=== PATIENT | female | born 1985 | race Caucasian/White ===

== ENCOUNTER → 2017-09-05 08:35 | Outpatient (CLI) | payer OTHER, SELFPAY ==
[2017-09-05 11:04] LABS: Absolute Lymphocyte Count 2.14 X10^3/ul (0.83-4.51); Basophil# 0.03 X10^3/uL; Basophil% 0.4 % (0-1); Eosinophil# 0.21 X10^3/uL; Eosinophils% 2.6 % (0-5); Hematocrit 40.6 % (37-47); Hemoglobin 13.9 g/dl (12.0-15.0); Lymphocyte # 2.14 X10^3/ul (4.0); Lymphocyte % 26.9 % (19-41); Mean Corp Hgb Conc 34.2 g/gl (32-36); Mean Corpuscular Volume 90.4 fL (81-99); Mean Platelet Vol. 10.7 fl (6.2-12.0); Monocyte% 7.5 % (0-10); Neutrophil # 4.95 X10^3/uL (2.7-7.7); Neutrophil % 62.3 % (47-70); Platelet Count 295 K/mm3 (150-450); RBC Distribution Width CV 12.4 % (11.6-14.6); RBC Distribution Width SD 40.5 fl (35.1-43.9); Red Blood Count 4.49 M/mm3 (4.2-5.4)
[2017-09-05 11:08] LABS: POSITIVE COUNT NO; POSITIVE DIFFERENTIAL NO; POSITIVE MORPHOLOGY NO
[2017-09-17 10:38] LABS: Pathologist Review Reviewed
== END ==
PROVIDERS: Family Provider Family Medicine; PCP Family Medicine; Visit Provider Family Medicine
DX: R53.83 Other fatigue (principal)
CPT/HCPCS: 36415; 85025

== ENCOUNTER → 2018-02-06 15:53 | Outpatient (CLI) | payer OTHER, SELFPAY ==
[2018-02-14 11:05] LABS: HPV Reflexed? NOT INDICATED
== END ==
PROVIDERS: Visit Provider Obstetrics & Gynecology
DX: Z12.4 Encounter for screening for malignant neoplasm of cervix (principal)
CPT/HCPCS: 88175; G0145

== ENCOUNTER → 2019-02-12 16:02 | Outpatient (CLI) | payer OTHER, SELFPAY | PROVIDERS: Visit Provider Obstetrics & Gynecology | DX: Z12.4 Encounter for screening for malignant neoplasm of cervix (principal) ==

== ENCOUNTER → 2019-11-05 10:09 | Outpatient (CLI) | payer OTHER, SELFPAY ==
[2016-06-10 06:41] VITALS: BMI 23.0
[2019-11-05 11:19] LABS: Absolute Lymphocyte Count 2.36 X10^3/uL (0.83-4.51); Absolute Neutrophil Count 5.6 X10^3/uL (2.0-7.7); Basophil# 0.05 X10^3/uL; Basophil% 0.6 % (0-1); Eosinophil# 0.23 X10^3/uL; Eosinophils% 2.5 % (0-5); Hematocrit 45.6 % (37-47); Hemoglobin 15.3 g/dL (12.0-15.0); Lymphocyte # 2.36 X10^3/ul (4.0); Mean Corp Hgb Conc 33.6 g/dL (32-36); Mean Corpuscular Volume 92.5 fL (81-99); Mean Platelet Vol. 10.6 fl (6.2-12.0); Monocyte# 0.79 X10^3/uL; Monocyte% 8.7 % (0-10); NRBC Flagged by Analyzer 0 % (0-5); Neutrophil # 5.61 X10^3/uL (2.7-7.7); Neutrophil % 61.9 % (47-70); Platelet Count 287 K/mm3 (150-450); RBC Distribution Width CV 12.2 % (11.6-14.6); RBC Distribution Width SD 41.6 fl (35.1-43.9); Red Blood Count 4.93 M/mm3 (4.2-5.4); White Blood Count 9.1 K/mm3 (4.4-11.0)
[2019-11-05 11:23] LABS: Color, Urine Yellow (Yellow); Glucose, Dipstick Normal (Normal); Ketone-Dipstick Negative (Negative); Leukocyte Esterase-Dipstick Negative /ul (Negative); Nitrite-Dipstick Negative (Negative); Occult Blood-Urine Negative /ul (Negative); Protein-Dipstick Negative (Negative); Specific Gravity, Urine 1.015 (1.002-1.030); Urine Bilirubin Dipstick Negative (Negative); Urine Clarity Clear (Clear); Urine Urobilinogen Normal (Normal)
[2019-11-05 11:31] LABS: Amphetamine Urine VISTA NEGATIVE (<1000 ng/mL); Barbiturate Urine VISTA NEGATIVE (< 200 ng/mL); Benzodiazepine Urine VISTA NEGATIVE (< 200 ng/mL); Cocaine Urine VISTA NEGATIVE (< 300 ng/mL); Ecstacy Urine VISTA NEGATIVE (< 500 ng/mL); Methadone Urine VISTA NEGATIVE (< 300 ng/mL); PCP Urine VISTA NEGATIVE (< 25 ng/mL); THC Urine VISTA NEGATIVE (< 50 ng/mL); Vista UDS pH Range 7
[2019-11-05 11:36] LABS: Thyroid Stim Hormone (TSH) 1.16 uIU/mL (0.358-3.74)
[2019-11-05 12:16] LABS: HIV - WCH Non-Reactive (Nonreactive); Hepatitis B Surface Antigen Non-Reactive (Nonreactive); Hepatitis C Antibody Non-Reactive (Nonreactive); Rubella IgG 70.7 IU/mL
[2019-11-05 13:47] LABS: Chlamydia Trachomatis by PCR Negative (Negative); Neisserai gonorrhoeae by PCR Negative (Negative); Probe Check PASS; Sample Adequacy Control PASS; Specimen Processing Control PASS
[2019-11-11 02:04] LABS: Prenatal RPR NONREACTIVE (NONREACTIVE)
== END ==
PROVIDERS: Visit Provider Obstetrics & Gynecology
DX: Z34.81 Encounter for supervision of other normal pregnancy, first trimester (principal); Z11.3 Encounter for screening for infections with a predominantly sexual mode of transmission; Z87.51 Personal history of pre-term labor
CPT/HCPCS: 36415; 80307; 81002; 84144; 84443; 85025; 86703; 86762; 86803; 87340; 87491; 87591

== ENCOUNTER → 2020-03-13 15:05 | Outpatient (CLI) | payer OTHER, MEDICAID, SELFPAY ==
[2016-06-10 06:41] VITALS: BMI 23.0
== END ==
PROVIDERS: Visit Provider Student in an Organized Health Care Education/Training Program
DX: Z82.69 Family history of other diseases of the musculoskeletal system and connective tissue (principal)
CPT/HCPCS: 36415

== ENCOUNTER → 2020-04-10 13:55 | Outpatient (CLI) | payer MEDICAID, SELFPAY ==
[2016-06-10 06:41] VITALS: BMI 23.0
[2020-04-10 14:40] LABS: Hematocrit 34.7 % (37-47); Hemoglobin 11.8 g/dL (12.0-15.0); Mean Corpuscular Hgb 31.8 pg (27.0-32.0); Mean Corpuscular Volume 93.5 fL (81-99); Mean Platelet Vol. 10.8 fl (6.2-12.0); Platelet Count 214 K/mm3 (150-450); RBC Distribution Width CV 12.1 % (11.6-14.6); RBC Distribution Width SD 41.7 fl (35.1-43.9); Red Blood Count 3.71 M/mm3 (4.2-5.4); White Blood Count 10.9 K/mm3 (4.4-11.0)
[2020-04-10 15:07] LABS: Glucose Challenge Gest 1H 50g 103 mg/dL (70-140)
== END ==
PROVIDERS: Visit Provider Student in an Organized Health Care Education/Training Program
DX: Z34.82 Encounter for supervision of other normal pregnancy, second trimester (principal)
CPT/HCPCS: 36415; 82950; 85027

== ENCOUNTER 2020-06-05 05:50 | Inpatient (IN) | payer MEDICAID, SELFPAY ==
[2016-06-10 06:41] VITALS: BMI 23.0
[2020-06-05] VITALS (36 sets, daily range): BP systolic 106–140; BP diastolic 51–81; PULSE 66–108; RESP 16–18; TEMP 36.3–37.3; O2SAT 95–100; BMI 30.1
[2020-06-05] MEDS: Lactated Ringers 500 ML 999 ML IV ×3 (06:10→12:31)
[2020-06-05] MEDS: Betamethasone/Betamethasone 30 MG/5 ML Vial 12 MG IM (06:21)
[2020-06-05 06:24] LABS: Absolute Lymphocyte Count 2.63 X10^3/uL (0.83-4.51); Basophil# 0.05 X10^3/uL; Basophil% 0.4 % (0-1); Eosinophil# 0.13 X10^3/uL; Eosinophils% 0.9 % (0-5); Hemoglobin 12.4 g/dL (12.0-15.0); Lymphocyte # 2.63 X10^3/ul (4.0); Lymphocyte % 18.9 % (19-41); Mean Corp Hgb Conc 33.5 g/dL (32-36); Mean Corpuscular Hgb 30.2 pg (27.0-32.0); Mean Platelet Vol. 11.3 fl (6.2-12.0); Monocyte# 1.07 X10^3/uL; Monocyte% 7.7 % (0-10); NRBC Flagged by Analyzer 0 % (0-5); Neutrophil % 71.7 % (47-70); Platelet Count 211 K/mm3 (150-450); RBC Distribution Width CV 12.5 % (11.6-14.6); RBC Distribution Width SD 40.1 fl (35.1-43.9); Red Blood Count 4.11 M/mm3 (4.2-5.4); White Blood Count 13.9 K/mm3 (4.4-11.0)
[2020-06-05] MEDS: Lactated Ringers 1,000 ML 200 ML IV ×2 (06:50→09:42)
[2020-06-05 06:51] LABS: Group B Strep DNA By PCR Negative (Negative); Internal Control PASS; Probe Check PASS; Specimen Processing Control PASS
--- NOTE | 2020-06-05 07:40 | PCM.HP.BLA ---
History and Physical Date of Admission: 06/05/20 ACOG ANTEPARTUM RECORD - HISTORY AND PHYSICAL (06/05/2020) Name: JASON NOLASCO History of this : This is a 35 year old [id number] presents at 35 wks + 4 days gestation in active labor. OB Physician: Jess Monsalve DO 's Physician: DOMINICK ...................................................................... : 1985 Age: 35 Address: [address] [place] [address] Phone: (H) [phone] (O) [phone] Insurance Carrier: [employer] [phone] Emergency Contact: LANG CONSTANCE [phone] ...................................................................... Final GUILLAUME: 07/06/20 07/06/20 By Ultrasound: PARITY:[id number] (G-Total Pregnancies P-Fullterm,Premature,Induced AB,Spont AB, Ectopics, Multiple,Living) GUILLAUME CONFIRMATION: By LMP: 09/30/19 09/30/19 Initial Exam: By First Ultrasound Exam: Final GUILLAUME: 07/06/20 07/06/20 OB PROBLEM LIST: AMA EPDS on 12/03/2019 = 3. h/o genital warts. perirectal warts Hx of anxiety New FOB for this , he has two daughters, ages 4 and 6. Plans to have an epidural, plans to breastfeed Son delivered at 23 w 4 d at [facility] [place]. Surgery at age 17 for Achalasia Unable to vomit Undecided about AFP. Declines CF/SMA screening. 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 Illicit Drug Use - denies use of street drugs Sexual Activity - ACTIVE [employer] Residence - Lives with [address] [address] of - [place], [place] Hours Worked - 45 Spouse-Sig Other Name - FOB- Syed Cool Spouse-Sig Other Occupation - Supervisor [employer] Spouse-Sig Other Phone No - [phone] Children Name(s) - Dixon PRIOR DELIVERY HISTORY DEL DATE GEST LAB WT LB WT OZ TYPE ANES LABOR TX 19 Aug 13 23 24 1 5 Vag None yes ANTEPARTUM FLOW CHART VISIT GE RTC FU F F TN U U DATE WK MD WKS HT PN HR M SS BP ED WT TN GL D EF ST __ ____ ___ __ __ ___ __ __ __ ___ __ __ __ ___ __ 16 May 33 CM 2 34 V + + 106/62 0 160 - - 02 May 31 CM 2 31 + + 118/62 0 156 - - 19 Apr 29 CM 2 29 V + + 126/70 0 155 - - Cl TH HI May 03 CM 2 27 U+ + 126/68 0 153 - tr 07 Mar 23 CM 4 23 + + 120/60 0 150 06 Feb 23 CM 4 20 U+ + 110/60 0 145 - - 07 Jan 14 CH 5 + ? 120/68 0 141 - - Dec 10 CH 4 on 120/66 0 141 - - Nov 9 CH 2 on O 110/66 0 143 - - ANTEPARTUM NOTE(S): May 23 2020: May 09 2020: Apr 25 2020: Apr 10 2020: Mar 13 2020: Feb 11 2020: Jan 12 2020: Dec 14 2020: Dec 02 2020: US and tele NOB today COMPREHENSIVE ANTEPARTUM NOTE(S): May 23 2020: US today for growth, Hx PTL. AGA, LEA WNL, cervical length 4 cm. kbm May 23 2020: Jason is here w FOB at 33.5 w gest. Baby active. No edema. Having back pain and cramping she thinks could be BH contr w some pain on low sides- points to groin area. Wears Maternity Support Belt at work- 4 days a week w two of those days being fairly light. LOCO. May 23 2020: 33/5w visit. Hx of PTD. Growth AGA. CL wnl. Supportive care discussed for low back pain and intermittent Morton Cooper. Hx of esophageal surgery. F/u 2w. CM May 09 2020: Reporting good FM. Less frequent cramping /abd tightening. Having heartburn. Taking Pepcid 2 x daily. May 09 2020: 31/5w visit. Hx of esophageal surgery. GERD. Takin gpepcid bid and tums, add pantoprazole once daily. Hx of PTD. Less cramping than before. F/u 2w with growth CM Apr 25 2020: Jason is reporting abdominal tighteing, denies leaking fluid denies spotting. Good FM. Long dip ua showing sp gr 1.010, ph 6.0, urobilinogen 0.2, rest is negative. US prior to visit today. Apr 25 2020: 29/5w visit. CL 3.55 with minimal funnel to 3.4 with fundal pressure. Reports occasional cramping that does not last more than a couple minutes. Precautions discussed. F/u 2w. CM Apr 10 2020: 1 Hr Glucose, CBC drawn today. Reporting good FM. Apr 10 2020: 27/4w visit. Hx of PTD. Today on US possible funneling with fundal pressure. CL still long with pressure. Reports some low back pain, pressure. Watery discharge. Pelvic: cervix closed, neg ferning/nitrazine. Getting TDAP today. F/u 2w with cervical length. CM Mar 21 2020: Jason is here following call to Triage for FHT check. Anxious due to her history having an extremely baby. FHT located w [facility]. Rate 150a. Jason is relieved. DRTrini. Mar 13 2020: Jason reporting good FM. Glucola bottle and instructions given to be done next visit. She is asking about genetics testing; concern with FOB having spina bifida -- he is able to walk, had surgery when he was younger. Comprehensive US done 02/11/20 showed no defects in the spine. Will discuss further w/Dr. Lorena Monsalve. Mar 13 2020: 23/4w visit. Family hx of spina bifida - desires AFP today. Given glucola for next visit. 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 F/u 4w. CM Feb 11 2020: Jason is her with SO for her PNV today. She has +FM. No edema present today. Voiced that Right eye has been watering for the past 2 weeks. In the past 3 days every morning her eye is crusted shut with yellowish green discharge and getting worse. She has no pain or redness with it. Medications and allergies reviewed. LJW Feb 11 2020: at 19/1w. Anatomy US wnl, CL abdominally wnl, declined vaginally. Denies bleeding or cramping. Will do growth starting 28w. Prior PTD at 23w. F/u 4w. CM Jan 12 2020: Jason is her for her PNV today. She states that she might feel FM but not sure. States that nausea is getting better. She takes Zofran PRN instead of every day. No edema present today. No complaints or concerns expressed today. [facility] Jan 12 2020: Starting to feel a lot better nausea el, but is now having lower back pain with hip/pelvic pain. Discussed relaxin and support bands. Sleeps on her right side and heard she shouldn't. Let her know that later on when she has more weight it can compress the vein, but her body would let her know if she was on her side too long. Our bodies naturally want to lay on the left side because she will get the best blood flow and oxygen that way. Feels maybe some flutters at night. FHR today 155, sounds posterior to placenta, but will look at next visit. Since she is feeling better she would like to wait 5 weeks for next appt to be able to have anatomy US and PNV together. Advised if she needs to come in earlier for a FHR check to just call. States understanding and is greatful. - Dec 15 2019: Jason is her for her PNV today. She is still having nausea all the time. She took the Zofran for 7 days at first then stopped as she thought it made her nausea worse. She started Zofran again 4 days ago and has not seen any improvement with the nausea. She states that 3 days ago she had noticed a yellow discharge when she wipes after using the restroom. Expressed that she would like to hear baby's heart beat today. No other questions or concerns expressed today. Medications and allergies reviewed today. [facility] Dec 15 2019: Weight check today with nausea and loss of weight at last visit 2 weeks ago. Reports since starting the Zofran her nausea has been basically the same with no difference. Has an allergy listed to phenergan and will double dose of Zofran. If isn't working can call in for Reglan Rx. Hopefully in the next 2-4 weeks nausea will subside with the beginning of the 2nd trimester. Wants to hear FHR today because of abnormal discharge a few days ago. Limited US today for FHR with HR of 175. Denies any bleeding or spotting other than the yellow discharge 3 days ago. Reviewed normal lochia changes in vs abnormal discharge. Understands to call if pink or red discharge happens to call immediately.To return in 4 weeks or call if needing anything further. - Dec 03 2019: Jason presents at 9 weeks for her dating US. US c/w GUILLAUME based on LMP, which is 07/06/2020. Pt denies bleeding, has slight cramping and is extremely nauseous. 3 lb weight loss in the last month and she would like to try a prescribed medication, as Unisom and B6 are not helping. Encouraged to continue drinking fluids and to call with any bleeding or pain. LB Dec 03 2019: Dating US today consistent with LMP with GUILLAUME 07-06-20 GA 9w1d. FHR 178. Reports no bleeding. Just having nausea. Had a previosu surgery that prevents her from vomiting, but still goes through the motions. Has tried OTC Vitamin B6 and still nauseas. Has tried Zofran, Omeprazole and Promethazine in previous . She would like Rx for Zofran. Has RN NOB call today at 1400. Filling out NOB paperwork now for call. Unsure of partners families genetic history so will vijaya undecided and have him [address] in for the phone call later since he is on the road for work. If any questions or concerns after that call then can review with pattern chart writer over the phone. To return in 2 weeks for routine visit with nausea and weight check. Understands if worsening and cannot keep anything down to call in for IV hydration- NEW Dec 03 2019: TELEHEALTH NOB VISIT. Jason is a 34 year old with an GUILLAUME of 07/06/2020, current GA is 9 w 1 d. She resides with [facility]. Syed Cool,and her 7 year old son from a previous relationship. Syed has two daughters, ages 4 and 6 from a previous relationship. Jason's son was delivered at [facility] at 23 w 4 d, she states that she was given MGSO4 to help stop labor, but after a few days of that they had to stop, and my son was born about 10 to 12 hours later. Past history updated. She states that her son has done well after being born so early, and will be in 1st grade this year. Delivery at [facility] is is planned with an epidural, and she will breastfeed. Office class suggested as a refresher. Jason has been having a lot of nausea, but as she had throat surgery in at age 17, she is unable to throw up. She discussed nausea with Lorena Fowler CNM at her PNV earlier today, and will be trying Zofran for nausea. Other measures that may help minimize nausea reviewed, including small frequent meals with protein included throughout the day, adequate water hydration of at least one gallon per day, carb rich foods, and motion sickness bracelets. She states that she does so, so on water, but plans to work on increasing intake. She takes an OTC vitamin at bedtime, and states that she tolerates this well. Office practice patterns reviewed. labs were collected at a prior visit. Emergencies/danger signs, how to contact the office during/after hours, reporting a suspected UTI, round ligament pain, and common OTC medications for minor ailments approved/not approved for use during reviewed. Jason is a non-smoker, and denies use of drugs or ETOH. Genetic Screening form completed today, and during telephone visit, she had her fiance' join the conversation to confirm his family history. Syed, his father, and his sister all have Scoliosis, no other significant given. Jason is undecided about AFP testing, she will discuss this further with Syed, and advise staff of her decision at her next PNV. She declines CF and SMA screening. Jason reports that she had some anxiety as a teen because her father suddenly; denies recent anxiety. EPDS today =3. Encouarged regular physical activity such as walking, 5 x/week. Lifting restrictions discussed. Dietary/water/caloric needs reviewed, including recommended weight gain, limiting empty calories, limiting caffeine to one cup a day, and food safety during . Jason states that she understands all information provided during 60 minute telephone NOB visit. AW New Nov 05 2019: Jason is being seen for missed menses. . 34 years old. UPT In office is positive. LMP 09/30/19. Pt is about 5 weeks 1 day. GUILLAUME 07/06/20. Pt does have some nausea. Last was almost 7 years ago and she was delivered at 23 weeks and 4 days at [facility]. New FOB and they are engaged. Last pap 2018 WNL. Urine to be sent for CT/NG. information reviewed and given to pt. Medications and allergies are up to date. AM Nov 05 2019: JODY Missed menses today. Previous patient of Dr. Martin. who delivered male infant at 23w4d at [facility] in 2012. Records indicate a possible placenta issue with bleeding throughout . LMP 09/30/19 with GA 5w1d and GUILLAUME of 07/06/20. Discussed getting Progesterone level today and can do oral supplementation, but IM is no longer indicated throughout as it was back in 2012. Will get entire NOB panel. Head to toe negative. Discussed CNM care and MD collaboration. Wishing to stay a smoke chaser patient and only female providers. Needs to be 8 wks for first US and no FHT until at least 6-6.5wk at least. Will get US, PNV and NOB RN visit scheduled. - CH REVIEW OF SYSTEMS: GENERAL - Denies fever, or chills SKIN - Denies rash, new skin lesions, or change in moles EYES - Denies blurred vision, or change in visual acuity EARS - Denies ear pain, or difficulty hearing NOSE - Denies nasal congestion, discharge, or bleeding MOUTH - Denies sore throat, or difficulty swallowing NECK - Denies pain or swelling RESPIRATORY - Denies shortness of breath, cough, wheezing CARDIOVASCULAR - Denies palpitations, chest pain, orthopnea, PND, peripheral edema, syncope or claudication GASTROINTESTINAL - Denies nausea, vomiting, diarrhea, constipation, Denies abdominal pain, melena and or bright red blood GENITOURINARY - Denies dysuria, frequency of urination, urgency, or hesitancy MUSCULOSKELETAL - Denies joint or muscle pain, or back pain NEUROLOGICAL - Denies localized numbness, weakness, or tingling PSYCHIATRIC - Denies depression, anxiety, substance abuse or suicide attempts ENDOCRINE - Denies heat or cold intolerance, weight loss or gain, increasing thirst HEMATO-IMMUNOLOGIC - Denies easy bruising, bleeding, oral ulcerations or recurrent infections GENETICS SCREENING: Age 35+ years: No Thalassemia: No Neural Tube Defect: No Down Syndrome: No CLIFF-SACHS: No Sickle Cell Disease: No Hemophilia: No Musc. Dystrophy: No Cystic Fibrosis: No-declines screening [place] Chorea: No Mental Retardation: No Fragile X: No Other genetic: No Other defects: No SABs/still births: No Drugs since LMP: No INFECTION HISTORY: High risk AIDS: No High risk Hepatitis: No Exposed to TB: No Exposed to Herpes: No Rash/viral illness since LMP: No History of STD: No MENSTRUAL HISTORY: *Menses Amount/Duration: 3-5 DAYS and 3-5 DAYSMenses Regularity: Regular and RegularFrequency: monthly and monthlyPrior Menses Date: and BCP's at Conception: and Menarche (Age Onset): 14 and 14HCG+: and * PAST SUMMARY: PARITY: 1. Total Pregnancies............ 2 2. Full Term Pregnancies........ 0 3. Premature.................... 1 4. Abortions - Induced.......... 0 5. Abortions - Spontaneous...... 0 6. Ectopics..................... 0 7. Multiple Births.............. 0 8. Living Children.............. 1 PAST #1: Date of :.................. 11/23/12 Gestation Weeks:................ 23 Length of labor(hours):......... 24 Sex:............................ M Weight-lbs:............... 1 Weight-oz:................ 5 Type of Delivery:............... Vag Type of Anesthesia:............. None Place of Delivery:.............. [facility] Treatment of Labor?:.... yes Comment: PTL/D PHYSICAL EXAMINATION General Appearence: 35 yo female in no acute distress Vital Signs: AF, VSS Heart: RRR without rubs or gallops Lungs: CTA x 2 Breasts: deferred Abdomen: gravid Pelvis: Cervix: 5-6/90 Presentation: cephalic Station: -2 Fetus: Size: AGA Movement: present Heart: present Labs for : JASON NOLASCO since 10/10/2019 ORDER DATEIN DESCRIPTION VALUE UNITS RANGE A+ COMMENT TYPE AND SCREEN 06/05/20 Labor [facility]~[address] [place], [address]~ B POSITIVE AB SCREEN GEL NEGATIVE CBC W/DIFF, AUTOMATED 06/05/20 NOTE Original Ordering Provider: Roger Vences WBC 13.9 K/mm3 4.4-11.0 H RBC 4.11 M/mm3 4.2-5.4 L HGB 12.4 g/dL 12.0-15.0 HCT 37.0 37-47 MCV 90.0 fL 81-99 MCH 30.2 pg 27.0-32.0 MCHC 33.5 g/dL 32-36 RDW CV 12.5 11.6-14.6 RDW SD 40.1 fl 35.1-43.9 PLT 211 K/mm3 150-450 MPV 11.3 fl 6.2-12.0 NEUT% 71.7 47-70 H LY% 18.9 19-41 L MONO% 7.7 0-10 EO% 0.9 0-5 BASO% 0.4 0-1 IG% 0.400 0.0-0.9 IG% - Immature Granulocytes (promyelocytes, myelocytes and metamyelocytes) > 1% indicates that a LEFT SHIFT is Present. ABSOLUTE NEUT 10.0 X10 3/uL 2.0-7.7 H ABSOLUTE LYMPH 2.63 X10 3/uL 0.83-4.51 NUCLEATED RBC 0 0-5 GROUP B STREP DNA BY PCR 06/05/20 NOTE Original Ordering Provider: Roger Vences GBS DNA ASSAY Negative Negative GLUCOSE CHALLENGE GEST 1H 50G 04/10/20 NOTE Original Ordering Provider: Jess Monsalve GLU GEST 50G 1H 103 mg/dL 70-140 CBC-COMPLETE BLOOD CNT NO DIFF 04/10/20 NOTE Original Ordering Provider: Jess Monsalve WBC 10.9 K/mm3 4.4-11.0 RBC 3.71 M/mm3 4.2-5.4 L HGB 11.8 g/dL 12.0-15.0 L HCT 34.7 % 37-47 L MCV 93.5 fL 81-99 MCH 31.8 pg 27.0-32.0 MCHC 34.0 g/dL 32-36 RDW CV 12.1 % 11.6-14.6 RDW SD 41.7 fl 35.1-43.9 PLT 214 K/mm3 150-450 MPV 10.8 fl 6.2-12.0 MISCELLANEOUS LAB PROCEDURE 03/13/20 NOTE Original Ordering Provider: Jess Monsalve [facility] LAB TEST TEST RESULT LIMITS AFP, Serum, Open Spina Bifida Results Report Test Results: *Screen Negative* Gest. Age on Collection Date 23.7 weeks Gestat. Age Based On LMP Recalculations are not recommended when gestational dating by LMP and ultrasound are within 10 days. M[age]LLAUME [age] yr Race Weight 150 lbs Insulin Dep Diabetes No Multiple Gestation No AFP Value 98.3 ng/mL AFP MoM 1.05 OSBR [place] 1 [place] [id number] Interpretation Interpretation: Screen Negative This result is screen negative for OSB. The AFP MoM calculated is based on the gestational age provided. MS-AFP can identify up to 80% of open neural tube defects. Closed neural tube defects and some open defects may not be detected by this test. This test does not screen for Down Syndrome or Trisomy 18. If screening for Down Syndrome or Trisomy 18 is desired, contact Genetic Customer Services to discuss available options. The [employer] recommends amniocentesis be offered to women age 35 and older. Comment: Grace Cabral, Ph.D., [facility] Director References: Available Upon Request. Multiples Of Median Cutoffs For AFP Elevations Ferro 2.5 Black 2.8 IDD 2.0 Twins 4.5 Abbreviation Definitions IDD - Insulin Dep Diabetes OSBR - Open Spina Bifida Risk For further inquiries contact [facility] Services at [phone]. TESTING PERFORMED AT [facility]. ORIGINAL REPORT ON FILE IN LAB CONTAINS ADDITIONAL TEST SITE INFORMATION. RPR 11/05/19 NOTE Original Ordering Provider: JC Fowler RPR NONREACTIVE NONREACTIVE CT/NG [facility] BY PCR 11/05/19 NOTE Original Ordering Provider: JC Fowler CHLAM TRAC PCR Negative Negative NG BY PCR Negative Negative T AND S-NO CHARGE W/PNP 11/05/19 Reason for Type AND Screen/Red Cells: Surgery? N [facility]~[address] [facility] [place], [address]~ BLOOD TYPE GEL B POSITIVE N AB SCREEN GEL NEGATIVE N HEPATITIS C ANTIBODY 11/05/19 NOTE Original Ordering Provider: JC Fowler HEPATITIS C AB Non-Reactive Nonreactive Non Reactive: < 0.8 Equivocal: >/= 0.8 to < 1.0 Reactive: >/= 1.0 The CDC recommends that a reactive/equivocal HCV antibody result be followed up by the HCV Nucleic Acid Amplification test (789224) HEPATITIS B SURFACE ANTIGEN 11/05/19 NOTE Original Ordering Provider: TEOFILORichard Ora Fowler HEPB SURFACE AG Non-Reactive Nonreactive HIV - H 11/05/19 NOTE Original Ordering Provider: TEOFILORichard Ora Fowler HIV - [facility] Non-Reactive Nonreactive PROGESTERONE LEVEL 11/05/19 NOTE Original Ordering Provider: TEOFILORichard Orajose daniel Fowler PROGESTERONE 13.20 ng/mL See Comment Progesterone Reference Table: UNITS Female: Follicular 0.15 - 1.40 ng/mL Luteal 3.34 - 25.56 ng/mL Mid-luteal 4.44 - 28.03 ng/mL Postmenopausal 0.0 - 0.73 ng/mL : 1st Trimester 11.22 - 90.00 ng/mL 2nd Trimester 25.55 - 89.40 ng/mL 3rd Trimester 48.40 -422.50 ng/mL RUBELLA IGG 11/05/19 NOTE Original Ordering Provider: JC Fowler RUBELLA IGG 70.7 IU/mL Antibody results Interpretation of Immune Status < 5 IU/ml Presumed Non-immune 5 - < 10 IU/ml Equivocal > or = 10 IU/ml Presumed Immune THYROID STIM HORMONE (TSH) 11/05/19 NOTE Original Ordering Provider: JC Fowler TSH 1.16 uIU/mL 0.358-3.74 URINE DRUG SCREEN (VISTA) 11/05/19 NOTE Original Ordering Provider: JC Fowler TO BE CONFIRMED CONFIRMATORY TESTING FOR ALL POSITIVE URINE DRUG SCREEN RESULTS WILL ONLY BE SENT OUT UPON PHYSICIAN ORDER. VISTA Urine Drug Screen methods provide only preliminary analytical test results. A more specific alternate chemical method must be used in order to obtain a confirmed analytical result. Gas chromatography/mass spectrometery (GC/MS) is the preferred confirmatory method. Clinical consideration and professional judgement should be applied to any drug of abuse test result, particularly when preliminary positive results are used. URINE TCA TESTING MUST BE ORDERED SEPARATELY. USE TEST MNEMONIC: [facility] VISTA UDS PH 7 AMPHETAMINES NEGATIVE <1000 ng/mL BARBITIURATES NEGATIVE < 200 ng/mL BENZODIAZIPINE NEGATIVE < 200 ng/mL COCAINE NEGATIVE < 300 ng/mL ECSTACY NEGATIVE < 500 ng/mL METHADONE NEGATIVE < 300 ng/mL OPIATES NEGATIVE < 300 ng/mL PCP NEGATIVE < 25 ng/mL THC NEGATIVE < 50 ng/mL URINALYSIS, ROUTINE (DIPSTICK) 11/05/19 NOTE Original Ordering Provider: JC Fowler COLOR Yellow Yellow CLARITY Clear Clear GLUCOSE, UR Normal mg/dl Normal BILIRUBIN URINE Negative mg/dL Negative KETONE UR Negative mg/dl Negative SP.GR. DIPSTX 1.015 1.002-1.030 PH UR 8.0 5.0 - 8.0 PROT DIPSTX Negative mg/dl Negative UROBILI Normal mg/dl Normal NITRITE UR Negative Negative OCCULT BLOOD-UR Negative /ul Negative LEUK ESTERASE Negative /ul Negative CBC W/DIFF, AUTOMATED 11/05/19 NOTE Original Ordering Provider: JC Fowler WBC 9.1 K/mm3 4.4-11.0 RBC 4.93 M/mm3 4.2-5.4 HGB 15.3 g/dL 12.0-15.0 H HCT 45.6 % 37-47 MCV 92.5 fL 81-99 MCH 31.0 pg 27.0-32.0 MCHC 33.6 g/dL 32-36 RDW CV 12.2 % 11.6-14.6 RDW SD 41.6 fl 35.1-43.9 PLT 287 K/mm3 150-450 MPV 10.6 fl 6.2-12.0 NEUT% 61.9 % 47-70 LY% 26.0 % 19-41 MONO% 8.7 % 0-10 EO% 2.5 % 0-5 BASO% 0.6 % 0-1 IM GRAN % 0.300 % 0.0-0.9 IG% - Immature Granulocytes (promyelocytes, myelocytes and metamyelocytes) > 1% indicates that a LEFT SHIFT is Present. ABSOLUTE NEUT 5.6 X10 3/uL 2.0-7.7 ABSOLUTE LYMPH 2.36 X10 3/uL 0.83-4.51 NRBC, FLAGGED 0 % 0-5 Impression /Plan: 35 wks + 4 days intrauterine in active labor. Steroids given. Preparations in progress for delivery.
[2020-06-05] MEDS: fentaNYL-bupivacaine (epidural) 100 ML BAG EPIDURAL ×2 (07:57→12:07)
[2020-06-05 08:36] LABS: Amphetamine Urine VISTA NEGATIVE (<1000 ng/mL); Barbiturate Urine VISTA NEGATIVE (< 200 ng/mL); Benzodiazepine Urine VISTA NEGATIVE (< 200 ng/mL); Cocaine Urine VISTA NEGATIVE (< 300 ng/mL); Ecstacy Urine VISTA NEGATIVE (< 500 ng/mL); Methadone Urine VISTA NEGATIVE (< 300 ng/mL); PCP Urine VISTA NEGATIVE (< 25 ng/mL); THC Urine VISTA NEGATIVE (< 50 ng/mL); Vista UDS pH Range 6
[2020-06-05] MEDS: Ondansetron 4 MG/2 ML Vial IV (10:18)
--- NOTE | 2020-06-05 11:04 | PCM.PN.BLA ---
Progress Note Decision to AROM made due to active labor with advanced cervical dilation at 6-7 cm with late deceleration. Patient had received celestone. Rapid GBS PCR negative, PCN started as precautionary. Discussed with patient and partner prior. CE 6-7 cm, 95% effaced. Continue to monitor closely. STROKE Vital Signs/Narrative: Vital Signs Temp Pulse BP Pulse Ox 06/05/20 10:51 108 H 123/64 H 06/05/20 10:50 97.3 F L 100 06/05/20 09:47 98.1 F 83 125/61 H 100 06/05/20 08:53 88 108/53 L 06/05/20 08:51 97.9 F 100 06/05/20 08:22 95 134/81 H 06/05/20 08:17 99 100 06/05/20 08:15 97.9 F 06/05/20 08:12 98 100 06/05/20 08:11 88 132/67 H 06/05/20 08:07 95 130/71 H 100 06/05/20 08:02 87 100 06/05/20 08:01 83 123/62 H 06/05/20 07:57 89 100 06/05/20 07:56 85 123/60 H 06/05/20 07:52 85 116/58 L 100 06/05/20 07:47 100 129/62 H 99 06/05/20 07:42 96 140/71 H 100 06/05/20 07:19 98.1 F 92 128/74 H 100
[2020-06-05] MEDS: Lactated Ringers 1,000 ML 999 ML IV (12:06)
[2020-06-05] MEDS: Oxytocin 30 units/NS 500 ml 30 UNITS/500 ML IV.SOLN 334 UNITS IV (12:45)
--- NOTE | 2020-06-05 12:59 | OP.PCM_ITS ---
Vaginal Delivery Maternal Presentation: Active Labor Amniotic Membrane Rupture Type: Artificial Amniotic Fluid Description: Clear Final GUILLAUME: 07/06/20 Final GUILLAUME Source: LMP Gestational age: 35 Weeks and 4 Days Date of Procedure: 06/05/20 Pre-Operative Diagnosis: Premature labor Post-Operative Diagnosis: Premature labor Surgery/ Procedure Performed: Spontaneous Vaginal Delivery Type of Anesthesia: Epidural Description of Procedure: Spontaneous vaginal delivery viable infant male, no nuchal cord. Vacuum device applied due to heart rate deceleration into the 50-60s after onset of several pushes. head position IESHA, +2 station. Maternal anesthesia adequate. No maternal tissue within vacuum seal. R/B/A discussed - risks include, but are not limited to: risk of maternal tear, risk of abrasion to scalp, cephalohematoma, subgaleal hemorrhage. Patient verbally consented. Vacuum utilized for 3-4 pushes, 3 pop offs noted. Vacuum use stopped. HR recovery. Maternal pushing effort continued with descent. Head delivered followed by body. Cord clamped and cut, baby to awaiting weight shifter and respiratory team. APGARS pending. Arterial gases obtained. Spontaneous delivery of placenta. Perineal first degree repaired in usual fashion, hemostatic. Right labial abrasion hemostatic with running stitch. Left labial abrasion hemostatic without intervention. EBL 350cc. Cord Vessel Description: 3 Vessels Cord Entanglement: None
--- NOTE | 2020-06-05 13:24 | DCINST_ITS ---
<Jess Monsalve - Last Filed: 06/05/20 13:24> Discharge Activity: Return to Normal Activity, May Shower May resume sexual activity in: 4-6 weeks Weight Bearing Status: Weight bearing as tolerated Call your doctor if you observe: Fever of 101 or Higher, Inability to urinate, Inability to have a bowel movement, Using more than one pad per hour, Shortness of breath, Swelling in the ankles Additional Instructions: If you experience any of the following, contact your healthcare provider. * Bleeding that soaks a pad every hour for 2 hours * Fever 100.4 or higher * Unrelieved incision or abdominal pain * Swelling, redness, discharge or bleeding from your incision or episiotomy site * Your incision begins to separate * Problems urinating (including inability to urinate or burning while urinating). * Visual changes * Severe headache * Flu-like symptoms * Pain or redness in one of both of your breasts * Pain, warmth, tenderness or swelling in your legs, especially the calf area * Frequent nausea and vomiting * Symptoms of depression or anxiety If you experience any of the following, call 911 or go to the nearest Emergency Room. * Chest pain * Problems breathing * Seizure activity * Partial or complete paralysis of a body part, slurred speech, weakness or drooping of the face, or a sudden inability to walk or hold your balance Allergies/Adverse Reactions: Allergies codeine Adverse Reaction (Mild, Verified 06/05/20 06:10) Other dizzy Medications to take at Discharge Famotidine [Pepcid] 20 mg PO DAILY 06/05/20 Pnv No.95/Ferrous Fum/Folic AC [ Formula Tablet] 1 tab PO DAILY 06/05/20 Please Follow Up With: Jess Monsalve DO When: 2w telehealth, 6w PP Primary Care Physician: Care Physician,No Primary [Primary Care Provider] - Test Results: Test results from this visit will be discussed in further detail at your follow- up appointment, if applicable. <Tommie Monsalve - Last Filed: 06/07/20 08:55> Additional Instructions: If you experience any of the following, contact your healthcare provider. * Bleeding that soaks a pad every hour for 2 hours * Fever 100.4 or higher * Unrelieved incision or abdominal pain * Swelling, redness, discharge or bleeding from your incision or episiotomy site * Your incision begins to separate * Problems urinating (including inability to urinate or burning while urinating). * Visual changes * Severe headache * Flu-like symptoms * Pain or redness in one of both of your breasts * Pain, warmth, tenderness or swelling in your legs, especially the calf area * Frequent nausea and vomiting * Symptoms of depression or anxiety If you experience any of the following, call 911 or go to the nearest Emergency Room. * Chest pain * Problems breathing * Seizure activity * Partial or complete paralysis of a body part, slurred speech, weakness or drooping of the face, or a sudden inability to walk or hold your balance Test Results: Test results from this visit will be discussed in further detail at your follow- up appointment, if applicable.
--- NOTE | 2020-06-05 13:35 | PLAC_PTH ---
PATIENT: WINTER NOLASCO LOC: [facility] U#:[id number] AGE/SX: 35/F ROOM: WP010 RE06/05/[address]: Dr. Jess Monsalve, : 1985 BED: 1 DIS: 06/07/2020 SPEC #: [id number] RECD: 06/05/20 15:32 STATUS: HILL RELloyd #: [id number] DIANNA: 06/05/20 13:[address]: Jess Monsalve DEPT: SURGICAL PATHOLOGY RECD BY: Radha Rodrigues ENTERED: 06/06/20 07:59 SP TYPE: PLACENTA OTHR DR: No Primary Care Phys Tissues: Placenta, NOS Procedures: Surgery Specimen Level V HEADER OPERATION: Vaginal delivery PRE-OP DIAGNOSIS: Labor TISSUE SUBMITTED: Placenta MICROSCOPIC DIAGNOSIS Placenta: Placental disc - third trimester placenta (367 gm). A focal area of infarction (1.5 cm in greatest dimension). Membranes - no pathologic diagnosis. Umbilical cord - three blood vessels and no pathologic diagnosis. SAGE:to 06/08/2020 MICROSCOPIC DESCRIPTION Slides are reviewed. GROSS DESCRIPTION SPECIMEN: PLACENTA / CLINICAL INFORMATION: A. Weight: 2.25 kg B. Gestational Age: 35 weeks C. Sex: Male PLACENTAL WEIGHT (POST FIXATION): 367 gm PLACENTAL DIMENSIONS: 17 x 15 x 2.5 cm PLACENTAL SHAPE: Usual ovoid PLACENTAL WEIGHT FOR GESTATIONAL AGE: Within 10-99th percentile MEMBRANES - Present A. Insertion: Marginal B. Site of rupture from edge: 8 cm from edge of placental disc C. Color of membrane: Marques-perez D. Abnormalities: None UMBILICAL CORD - Present A. Color: Marques-perez B. Insertion: Paracentral C. Length: 33 cm D. Diameter: 1.1 cm E. Number of vessels: Three F. Abnormalities: None PLACENTAL DISC - Present A. Color of surface: Marques-perez B. surface abnormalities: None C. Maternal cotyledons: Intact with minimal tears D. Attached retro placental clot: No clot E. Cut surface: Dark red and spongy F. Lesions: A marques hemorrhagic lesion noted measuring 1.5 cm in greatest dimension. G. Separate clot: Absent SECTIONS SUBMITTED: 1. Membrane roll 2. Cord, maternal end 3. Cord, end 4. Placental disc, and maternal surfaces, lesion 5. Placental disc, and maternal surfaces 6. Placental disc, and maternal surfaces SJ:to 06/07/20 TC:5 CPT: 20805
[2020-06-05] MEDS: 0.9% Saline Lock 10 ML Syringe IV (15:34)
[2020-06-05] MEDS: Acetaminophen 500 MG Tablet 1000 MG PO (16:45)
[2020-06-05] MEDS: Ibuprofen 600 MG Tablet PO (21:40)
[2020-06-06] MEDS: Acetaminophen 500 MG Tablet 1000 MG PO ×2 (02:20→08:51)
--- NOTE | 2020-06-06 05:45 | PN.OBGYN_ITS ---
Subjective: PPD#1 /pumping, baby just went to [facility]. Some soreness, pain controlled. Lochia minimal - Physical Exam Vitals/I&O's: Vital Signs Temp Pulse Resp BP Pulse Ox 98.9 F 66 16 110/58 L 95 06/05/20 23:04 06/05/20 23:04 06/05/20 23:04 06/05/20 23:04 06/05/20 23:04 Oxygen Delivery Method Room Air Weight: 72.4 kg Body Mass Index (BMI) 30.1 Intake and Output for Last 24 Hours 06/04/20 06/05/20 06/06/20 23:59 23:59 23:59 Intake Total 4177.78 / 4177.78 Output Total 3750 / 3750 Balance 427.78 / 427.78 General: Alert, Oriented x3, No apparent distress HEENT: Atraumatic, Normocephalic Neck: Supple Lungs: Normal air movement Cardiovascular: Regular rate Abdomen: Soft - uterus 2 cm below umbilicus Extremities: No edema Neurological: Cranial nerves II-XII grossly intact Psych/Mental Status: Normal Affect, Appropriate Microbiology Past 72 Hours 06/05/20 06:35 Mucosa - Nose SARS-CoV-2 Antigen (Rapid) - Final Laboratory Results 06/05/20 05:45: Group B Strep DNA Negative, Specimen Comment Not Reportable 06/05/20 06:15: WBC 13.9 H, RBC 4.11 L, Hgb 12.4, Hct 37.0, MCV 90.0, MCH 30.2, MCHC 33.5, RDW Std Deviation 40.1, RDW Coeff of Angela 12.5, Plt Count 211, MPV 11.3, Immature Gran % (Auto) 0.400, Neut % (Auto) 71.7 H, Lymph % (Auto) 18.9 L, [place] % (Auto) 7.7, Eos % (Auto) 0.9, Baso % (Auto) 0.4, Absolute Neuts (auto) 10.0 H, Absolute Lymphs (auto) 2.63, Nucleated RBC % 0 06/05/20 06:15: Blood Type B POSITIVE, Antibody Screen NEGATIVE 06/05/20 07:40: Urine Opiates Screen NEGATIVE, Urine Methadone Screen NEGATIVE, Ur Barbiturates Screen NEGATIVE, Ur Phencyclidine Scrn NEGATIVE, Ur Amphetamines Screen NEGATIVE, U Methamphetamin-MDMA NEGATIVE, U Benzodiazepines Scrn NEGATIVE, Urine Cocaine Screen NEGATIVE, U Cannabinoids Screen NEGATIVE, Ur Drug Screen Comment Current Medications Acetaminophen (Acetaminophen 500 Mg Tablet) 1,000 mg PO Q8H PRN PRN PRN Reason: Pain Score 1-3 Last Admin: 06/06/20 02:20 Dose: 1,000 mg Documented by: Bisacodyl (Bisacodyl 10 Mg Suppository) 10 mg RECTAL UD PRN PRN Reason: If no BM Dibucaine (Dibucaine 30 Gm Tube) 1 applic TOPICAL TID PRN PRN; Protocol PRN Reason: Discomfort Hydrocortisone (Hydrocortisone 2.5% Crm) 1 applic TOPICAL TID PRN PRN; Protocol PRN Reason: Discomfort Ibuprofen (Ibuprofen 600 Mg Tablet) 600 mg PO Q6H PRN PRN PRN Reason: Pain Score 1-3 Last Admin: 06/05/20 21:40 Dose: 600 mg Documented by: Ondansetron HCl (Ondansetron 4 Mg/2 Ml Vial) 4 mg IV Q4H PRN PRN PRN Reason: Nausea Senna/Docusate Sodium (Senna/Docusate Sodium 1 Tablet) 1 - 2 tablet PO DAILY PRN PRN PRN Reason: Constipation Simethicone (Simethicone 80 Mg Tablet) 80 mg PO PCHS PRN PRN Reason: Indigestion/Stomach pain Last Admin: 06/06/20 00:06 Dose: 80 mg Documented by: Sodium Chloride (0.9% Saline Lock 10 Ml Syringe) 5 - 15 ml IV UD PRN PRN Reason: SALINE FLUSH Last Admin: 06/05/20 15:34 Dose: 10 ml Documented by: Zolpidem Tartrate (Zolpidem Tartrate 5 Mg Tablet) 5 mg PO QHS PRN PRN PRN Reason: Insomnia Medical Necessity - Tobacco Use Smoking Status: Never smoker Assessment/Plan PPD#1 s/p . Baby in special care due to low blood glucose. . Pumping. Consider home tomorrow.
[2020-06-06] MEDS: Ibuprofen 600 MG Tablet PO ×3 (06:16→20:41)
[2020-06-06 06:17] VITALS: BP 95/56; RESP 14; O2SAT 97
[2020-06-06 08:56] VITALS: BP 116/67; PULSE 69; RESP 16; TEMP 36.6
[2020-06-06 14:22] VITALS: BP 109/58; PULSE 76; RESP 16; TEMP 36.8
[2020-06-06 14:30] VITALS: BP 109/58; PULSE 76; RESP 20; TEMP 36.8
[2020-06-06] MEDS: Senna/Docusate Sodium 1 Tablet PO (19:18)
[2020-06-06 20:31] VITALS: BP 124/55; PULSE 71; RESP 18; TEMP 36.7
[2020-06-06] MEDS: Bisacodyl 10 MG Suppository RECTAL (20:36)
[2020-06-07 01:53] VITALS: BP 119/63; PULSE 77; RESP 14; TEMP 36.4; O2SAT 99
--- NOTE | 2020-06-07 03:52 | NURSING ---
Report given to Sinai Perez RN who will assume care of the patient at this time.
[2020-06-07] MEDS: Ibuprofen 600 MG Tablet PO ×2 (04:22→17:48)
[2020-06-07 08:40] VITALS: BP 117/69; PULSE 76; RESP 18; TEMP 36.7; O2SAT 96
--- NOTE | 2020-06-07 08:54 | PCM.PN.OB ---
Subjective: No overnight complaints. Pain well controlled. Minimal lochia - Physical Exam Vitals/I&O's: Vital Signs Temp Pulse Resp BP Pulse Ox 97.6 F L 77 14 119/63 99 06/07/20 01:53 06/07/20 01:53 06/07/20 01:53 06/07/20 01:53 06/07/20 01:53 Oxygen Delivery Method Room Air Weight: 159 lb 9.835 oz Body Mass Index (BMI) 30.1 Intake and Output for Last 24 Hours 06/05/20 06/06/20 06/07/20 23:59 23:59 23:59 Intake Total 4177.78 / 4177.78 Output Total 3750 / 3750 Balance 427.78 / 427.78 General: Alert, Oriented x3, Cooperative, No apparent distress HEENT: Atraumatic Neck: Supple Abdomen: Soft, Non Tender, - - Uterus firm and below umbilicus Extremities: No clubbing, No cyanosis, No edema Neurological: Neuro grossly intact Psych/Mental Status: Normal Affect, Appropriate, Alert and oriented to time, place, person, mood and affect Microbiology Past 72 Hours 06/05/20 Unknown Genital vaginal Group B Streptococcus Culture - Preliminary Group B Beta Streptococcus is not isolated. 06/05/20 06:35 Mucosa - Nose SARS-CoV-2 Antigen (Rapid) - Final Current Medications Acetaminophen (Acetaminophen 500 Mg Tablet) 1,000 mg PO Q8H PRN PRN PRN Reason: Pain Score 1-3 Last Admin: 06/06/20 08:51 Dose: 1,000 mg Documented by: Bisacodyl (Bisacodyl 10 Mg Suppository) 10 mg RECTAL UD PRN PRN Reason: If no BM Last Admin: 06/06/20 20:36 Dose: 10 mg Documented by: Dibucaine (Dibucaine 30 Gm Tube) 1 applic TOPICAL TID PRN PRN; Protocol PRN Reason: Discomfort Hydrocortisone (Hydrocortisone 2.5% Crm) 1 applic TOPICAL TID PRN PRN; Protocol PRN Reason: Discomfort Ibuprofen (Ibuprofen 600 Mg Tablet) 600 mg PO Q6H PRN PRN PRN Reason: Pain Score 1-3 Last Admin: 06/07/20 04:22 Dose: 600 mg Documented by: Ondansetron HCl (Ondansetron 4 Mg/2 Ml Vial) 4 mg IV Q4H PRN PRN PRN Reason: Nausea Senna/Docusate Sodium (Senna/Docusate Sodium 1 Tablet) 1 - 2 tablet PO DAILY PRN PRN PRN Reason: Constipation Last Admin: 06/06/20 19:18 Dose: 2 tablet Documented by: Simethicone (Simethicone 80 Mg Tablet) 80 mg PO PCHS PRN PRN Reason: Indigestion/Stomach pain Last Admin: 06/06/20 00:06 Dose: 80 mg Documented by: Sodium Chloride (0.9% Saline Lock 10 Ml Syringe) 5 - 15 ml IV UD PRN PRN Reason: SALINE FLUSH Last Admin: 06/05/20 15:34 Dose: 10 ml Documented by: Zolpidem Tartrate (Zolpidem Tartrate 5 Mg Tablet) 5 mg PO QHS PRN PRN PRN Reason: Insomnia Medical Necessity - Tobacco Use Smoking Status: Never smoker Assessment/Plan day 2. Pain well controlled. Baby in special care nursery for glucose control. Will discharge patient to hotel status.
[2020-06-07] MEDS: Acetaminophen 500 MG Tablet 1000 MG PO (09:17)
[2020-06-07 14:38] VITALS: BP 120/68; PULSE 81; RESP 16; TEMP 36.3; O2SAT 97
--- NOTE | 2020-06-07 17:53 | NURSING ---
Pt. remaining in room while baby in SCN.
[2020-06-08 14:46] LABS: Pathology Specimen OB SEE PATHOLOGY REPORT
== END 2020-06-07 18:10 | disposition home or self-care (01) | DRG 560 ==
LOC: WPOUT 06:02 → WP 06:02
PROVIDERS: Obstetrics & Gynecology; Admitting Provider Student in an Organized Health Care Education/Training Program; Visit Provider Student in an Organized Health Care Education/Training Program
DX: O60.14X0 Preterm labor third trimester with preterm delivery third trimester, not applicable or unspecified (principal); O76 Abnormality in fetal heart rate and rhythm complicating labor and delivery; O70.0 First degree perineal laceration during delivery; F41.9 Anxiety disorder, unspecified; O99.344 Other mental disorders complicating childbirth; Z3A.35 35 weeks gestation of pregnancy; Z37.0 Single live birth; Z82.79 Family history of other congenital malformations, deformations and chromosomal abnormalities
CPT/HCPCS: 59025; 59050; 80307; 85025; 86850; 86900; 86901; 87081; 87426; 87653; 88307; 99218; J7120; A4216; G0378; J0702; J2405

== ENCOUNTER → 2021-02-02 14:42 | Outpatient (CLI) | payer MEDICAID, SELFPAY ==
[2021-02-07 13:25] LABS: HPV APTIMA, High Risk Negative (Negative)
== END ==
PROVIDERS: Visit Provider Student in an Organized Health Care Education/Training Program
DX: Z12.4 Encounter for screening for malignant neoplasm of cervix (principal)
CPT/HCPCS: 87624; 88175; G0145

== ENCOUNTER → 2022-04-09 | Outpatient (CLI) | payer MEDICAID, SELFPAY ==
[2022-04-09 13:15] LABS: Absolute Lymphocyte Count 2.49 X10^3/uL (0.83-4.51); Absolute Neutrophil Count 6.8 X10^3/uL (2.0-7.7); Basophil# 0.02 X10^3/uL; Basophil% 0.2 % (0-1); Eosinophil# 0.11 X10^3/uL; Eosinophils% 1.1 % (0-5); Hematocrit 39.4 % (37-47); Hemoglobin 13.9 g/dL (12.0-15.0); Lymphocyte # 2.49 X10^3/ul (0.83-4.51); Lymphocyte % 24.4 % (19-41); Mean Corp Hgb Conc 35.3 g/dL (32-36); Mean Corpuscular Hgb 32.2 pg (27.0-32.0); Mean Corpuscular Volume 91.2 fL (81-99); Mean Platelet Vol. 11.1 fl (6.2-12.0); Monocyte# 0.77 X10^3/uL; Monocyte% 7.6 % (0-10); NRBC Flagged by Analyzer 0 % (0-5); Neutrophil # 6.77 X10^3/uL (2.7-7.7); Neutrophil % 66.4 % (47-70); Platelet Count 223 K/mm3 (150-450); RBC Distribution Width CV 12.2 % (11.6-14.6); RBC Distribution Width SD 40.9 fl (35.1-43.9); Red Blood Count 4.32 M/mm3 (4.2-5.4); White Blood Count 10.2 K/mm3 (4.4-11.0)
[2022-04-09 14:21] LABS: HIV - WCH Non-Reactive (Nonreactive); Hepatitis B Surface Antigen Non-Reactive (Nonreactive); Hepatitis C Antibody Non-Reactive (Nonreactive); Rubella IgG Reactive (Nonreactive); Syphilis Antibodies Non-reactive
[2022-04-12 05:07] LABS: Chlamydia By Nucleic Acid AMP Negative (Negative)
[2022-04-12 18:27] LABS: V-Zoster IgG (Immunity) < 135 index (Immune >165)
[2022-04-12 19:23] LABS: Gonococcus By Nucleic Acid AMP Negative (Negative)
[2022-04-14 16:28] LABS: HPV APTIMA, High Risk Negative (Negative)
== END | disposition home or self-care (01) ==
LOC: WOBLAB 12:26
PROVIDERS: Visit Provider Student in an Organized Health Care Education/Training Program
DX: Z34.81 Encounter for supervision of other normal pregnancy, first trimester (principal); Z11.3 Encounter for screening for infections with a predominantly sexual mode of transmission; Z12.4 Encounter for screening for malignant neoplasm of cervix
CPT/HCPCS: 36415; 85025; 86703; 86762; 86780; 86787; 86803; 87086; 87088; 87340; 87491; 87591; 87624; 88175; G0145

== ENCOUNTER → 2022-05-06 | Outpatient (CLI) | payer MEDICAID, SELFPAY ==
--- NOTE | 2022-05-06 13:00 | US_ITS ---
STUDY: SECOND AND THIRD TRIMESTER OBSTETRICAL ULTRASOUND REASON FOR EXAM: Female, 37 years old HX PRE-TERM LABOR - cx length LMP: 01/20/2022. TECHNIQUE: Transvaginal TECHNICAL QUALITY: Adequate. PRIOR ULTRASOUND: None. FINDINGS: There is a single intrauterine fetus. The fetus is in a breech presentation. There is demonstrated cardiac activity with a heart rate of 155 bpm. changes. The cervix measures 4.8 cm in length. The adnexal regions are not visualized. BIOMETRY: Age by LMP: 15 weeks, 1 days. GUILLAUME by LMP: 10/27/2022.. US/Transvaginal w/Preg US IMPRESSION: Cervical length measures 4.8 cm. Electronically Signed: Elliott Almonte MD at 9:08 EST ,
== END | disposition home or self-care (01) ==
LOC: OPUS 12:56
PROVIDERS: Visit Provider Student in an Organized Health Care Education/Training Program
DX: Z87.51 Personal history of pre-term labor (principal)
CPT/HCPCS: 76817

== ENCOUNTER → 2022-05-27 | Outpatient (CLI) | payer MEDICAID, SELFPAY ==
--- NOTE | 2022-05-27 09:29 | US_ITS ---
STUDY: SECOND AND THIRD TRIMESTER OBSTETRICAL ULTRASOUND-Limited REASON FOR EXAM: Female, 37 years old CERVICAL LENGTH LMP: 01/20/2022 TECHNIQUE: Transabdominal TECHNICAL QUALITY: Adequate. PRIOR ULTRASOUND: None. FINDINGS: There is a single intrauterine fetus. The fetus is in a transverse lie with the head on the maternal right side. There is demonstrated cardiac activity with a heart rate of 143 bpm. There is a normal amniotic fluid volume. The cervix measures 6.2 cm in length. The adnexal regions are not visualized. US/Transvaginal w/Preg US IMPRESSION: Single live intrauterine with heart rate of 143 bpm and cervical length measuring 6.2 cm Electronically Signed: Radames Wu MD at 11:19 EST ,
== END | disposition home or self-care (01) ==
LOC: US 09:28
PROVIDERS: Referring Provider Student in an Organized Health Care Education/Training Program; Visit Provider Student in an Organized Health Care Education/Training Program
DX: Z34.82 Encounter for supervision of other normal pregnancy, second trimester (principal); Z87.51 Personal history of pre-term labor
CPT/HCPCS: 76817

== ENCOUNTER → 2022-07-09 | Outpatient (CLI) | payer MEDICAID, SELFPAY ==
[2022-07-09 10:01] LABS: Absolute Lymphocyte Count 1.65 X10^3/uL (0.83-4.51); Absolute Neutrophil Count 7.8 X10^3/uL (2.0-7.7); Basophil# 0.03 X10^3/uL; Basophil% 0.3 % (0-1); Eosinophil# 0.16 X10^3/uL; Eosinophils% 1.6 % (0-5); Hematocrit 35.5 % (37-47); Hemoglobin 11.9 g/dL (12.0-15.0); Lymphocyte # 1.65 X10^3/ul (0.83-4.51); Lymphocyte % 16.1 % (19-41); Mean Corp Hgb Conc 33.5 g/dL (32-36); Mean Corpuscular Hgb 31.8 pg (27.0-32.0); Mean Corpuscular Volume 94.9 fL (81-99); Mean Platelet Vol. 10.7 fl (6.2-12.0); Monocyte# 0.54 X10^3/uL; Monocyte% 5.3 % (0-10); NRBC Flagged by Analyzer 0 % (0-5); Neutrophil # 7.83 X10^3/uL (2.7-7.7); Neutrophil % 76.2 % (47-70); Platelet Count 231 K/mm3 (150-450); RBC Distribution Width CV 12.9 % (11.6-14.6); RBC Distribution Width SD 44.4 fl (35.1-43.9); Red Blood Count 3.74 M/mm3 (4.2-5.4); White Blood Count 10.3 K/mm3 (4.4-11.0)
[2022-07-09 10:39] LABS: Glucose Challenge Gest 1H 50g 126 mg/dL (70-140)
[2022-07-09 11:07] LABS: Syphilis Antibodies Non-reactive
== END | disposition home or self-care (01) ==
PROVIDERS: Visit Provider Student in an Organized Health Care Education/Training Program
DX: Z34.82 Encounter for supervision of other normal pregnancy, second trimester (principal)
CPT/HCPCS: 36415; 82950; 85025; 86780

== ENCOUNTER → 2022-09-30 | Outpatient (CLI) | payer MEDICAID, SELFPAY ==
[2022-09-30 16:13] LABS: Absolute Lymphocyte Count 2.03 X10^3/uL (0.83-4.51); Absolute Neutrophil Count 6.7 X10^3/uL (2.0-7.7); Basophil# 0.04 X10^3/uL; Basophil% 0.4 % (0-1); Eosinophil# 0.11 X10^3/uL; Eosinophils% 1.1 % (0-5); Lymphocyte # 2.03 X10^3/ul (0.83-4.51); Lymphocyte % 20.9 % (19-41); Mean Corp Hgb Conc 33.3 g/dL (32-36); Mean Corpuscular Hgb 29.9 pg (27.0-32.0); Mean Corpuscular Volume 89.7 fL (81-99); Mean Platelet Vol. 11.3 fl (6.2-12.0); Monocyte# 0.78 X10^3/uL; NRBC Flagged by Analyzer 0 % (0-5); Neutrophil # 6.69 X10^3/uL (2.7-7.7); Neutrophil % 69.1 % (47-70); Platelet Count 214 K/mm3 (150-450); RBC Distribution Width CV 12.4 % (11.6-14.6); RBC Distribution Width SD 40.5 fl (35.1-43.9); Red Blood Count 3.68 M/mm3 (4.2-5.4); White Blood Count 9.7 K/mm3 (4.4-11.0)
== END | disposition home or self-care (01) ==
LOC: WOBLAB 14:36
PROVIDERS: Visit Provider Obstetrics & Gynecology
DX: Z34.83 Encounter for supervision of other normal pregnancy, third trimester (principal); Z36.85 Encounter for antenatal screening for Streptococcus B
CPT/HCPCS: 36415; 85025; 87081

== ENCOUNTER 2022-10-21 06:55 | Inpatient (IN) | payer MEDICAID, SELFPAY ==
[2022-10-21] VITALS (64 sets, daily range): BP systolic 114–156; BP diastolic 55–74; PULSE 75–163; RESP 15; TEMP 36.1–37.2; O2SAT 83–100; BMI 30.2
[2022-10-21] MEDS: Lactated Ringers 1,000 ML 50 ML IV (08:15)
--- NOTE | 2022-10-21 08:23 | PCM.HP.BLA ---
History and Physical Date of Admission: 10/21/22 Chief complaint: Induction of labor at term History present illness: 37-year-old at 39 weeks and 1 day with GUILLAUME 10/27/2021 arrives for induction of labor at term. Denies headache, vision changes, chest pain, shortness of breath, nausea vomit, right upper quadrant pain. Patient states good movement. is complicated by history of delivery, BMI 30, AMA Obstetric history: G1: 25-week / delivery 1 pound 5 ounce G2: 35-week / delivery 4 pounds 14 ounces G3: Current Past medical history: None Medications: vitamin Allergies: Nexium, Phenergan, codeine Past surgical history: Esophageal surgery, condyloma removal Family history: Denies history DVT or PE Social history: Denies smoking, alcohol use, drug use Review of systems: Besides above pertinent positives a full review of systems was performed and found to be negative Physical exam: Vitals: Blood pressure 126/74 pulse 95 temperature 97.4 ?F General: Normal-appearing no acute distress HEENT: Normocephalic/atraumatic no cervical lymphadenopathy Cardiac/respiratory: No use of accessory muscles, nonlabored breathing Abdomen: Soft, nontender, gravid Extremities: No peripheral edema normal peripheral pulses Psych: Normal affect and demeanor nonpressured speech Labs: Pending Bedside ultrasound: Cephalic Assessment and plan: 37-year-old at 39 weeks and 1 day for induction of labor at term. Educated patient on induction process discussed Pitocin and epidural options at length risk benefits alternatives thoroughly discussed with patient and partner. All questions answered Admit labor and delivery CEFM GBS negative Pitocin induction Routine orders
[2022-10-21] MEDS: Oxytocin 15 Units/NS 250ml 15 UNITS/250 ML IV.SOLN 2 UNITS IV (08:40)
[2022-10-21 08:55] LABS: Absolute Lymphocyte Count 2.22 X10^3/uL (0.83-4.51); Absolute Neutrophil Count 7.1 X10^3/uL (2.0-7.7); Basophil# 0.04 X10^3/uL; Basophil% 0.4 % (0-1); Eosinophil# 0.11 X10^3/uL; Eosinophils% 1.1 % (0-5); Hematocrit 33.4 % (37-47); Hemoglobin 11.3 g/dL (12.0-15.0); Lymphocyte # 2.22 X10^3/ul (0.83-4.51); Lymphocyte % 21.5 % (19-41); Mean Corp Hgb Conc 33.8 g/dL (32-36); Mean Corpuscular Hgb 29.6 pg (27.0-32.0); Mean Corpuscular Volume 87.4 fL (81-99); Mean Platelet Vol. 11.7 fl (6.2-12.0); Monocyte% 7.7 % (0-10); NRBC Flagged by Analyzer 0 % (0-5); Neutrophil # 7.12 X10^3/uL (2.7-7.7); Neutrophil % 68.9 % (47-70); Platelet Count 218 K/mm3 (150-450); RBC Distribution Width CV 12.7 % (11.6-14.6); RBC Distribution Width SD 40.1 fl (35.1-43.9); Red Blood Count 3.82 M/mm3 (4.2-5.4); White Blood Count 10.3 K/mm3 (4.4-11.0)
[2022-10-21 09:28] LABS: Syphilis Antibodies Non-reactive
[2022-10-21] MEDS: LACTATED RINGERS 500 ML 999 ML IV ×2 (10:30→15:43)
[2022-10-21] MEDS: fentaNYL-bupivacaine (epidural) 100 ML BAG EPIDURAL ×2 (11:54→16:45)
--- NOTE | 2022-10-21 12:56 | PCM.PN.OB ---
Subjective Subjective Now comfortable with epidural Objective Data Objective Data Vital Signs: Vital Signs Temp Pulse BP Pulse Ox 98.1 F 94 127/71 H 99 10/21/22 12:15 10/21/22 12:31 10/21/22 12:31 10/21/22 12:31 Weight: 160 lb 3.2 oz Body Mass Index (BMI) 30.2 Intake & Output: Intake and Output for Last 24 Hours 10/19/22 10/20/22 10/21/22 23:59 23:59 23:59 Intake Total 647.67 / 647.67 Output Total 100 / 100 Balance 547.67 / 547.67 Lab / Micro Data 10/21/22 08:20 Labs: Laboratory Results - last 24 hr 10/21/22 08:20: WBC 10.3, RBC 3.82 L, Hgb 11.3 L, Hct 33.4 L, MCV 87.4, MCH 29.6, MCHC 33.8, RDW Std Deviation 40.1, RDW Coeff of Angela 12.7, Plt Count 218, MPV 11.7, Immature Gran % (Auto) 0.400, Neut % (Auto) 68.9, Lymph % (Auto) 21.5, [place] % (Auto) 7.7, Eos % (Auto) 1.1, Baso % (Auto) 0.4, Absolute Neuts (auto) 7.1, Absolute Lymphs (auto) 2.22, Nucleated RBC % 0, Syphilis Total Ab Non-reactive, Blood Type B POSITIVE, Antibody Screen NEGATIVE Physical Exam Const alert, oriented x3, no apparent distress, average body habitus, healthy appearing and well nourished HEENT normocephalic and moist oral mucous membranes Eyes PERRL Neck full ROM Resp normal respiratory effort, no retractions and no use of accessory muscles GI GI Narrative: Soft, nontender, gravid Narrative: Cervical exam: 360/-3. AROM clear fluid Psych mental status grossly normal, affect normal, speech normal and activity/motor behavior normal Assessment & Plan (1) : PLAN: Patient seen and examined. Now comfortable with epidural. Educated patient on cervical exam and AROM, patient agrees. AROM clear fluid. Educated patient on post AROM expectations and continued induction plan. Patient and partner state understanding all questions answered
[2022-10-21] MEDS: Mag Hydrox/Al Hydrox/Simeth 30 ML UDC PO (14:09)
[2022-10-21] MEDS: Lactated Ringers 1,000 ML 200 ML IV (15:43)
--- NOTE | 2022-10-21 17:34 | EX.PCM.OBRPT ---
Vaginal Delivery Findings Description of Procedure: Normal spontaneous vaginal delivery of a viable female infant, vertex ALEXA. Head and shoulders delivered with ease. Cord clamped and cut. Baby handed off to patient. Placenta delivered via cord traction and fundal massage intact. IV oxytocin initiated per protocol. Second-degree midline perineal laceration noted and repaired in typical fashion. EBL 250 cc Apgars 8/9
[2022-10-21] MEDS: Oxytocin 15 Units/NS 250ml 15 UNITS/250 ML IV.SOLN 83 UNITS IV (18:03)
[2022-10-21] MEDS: Acetaminophen 500 MG Tablet 1000 MG PO (19:02)
[2022-10-21] MEDS: Benzocaine/Lanolin/Aloe Vera 1 SPRAY EACH TOPICAL (19:48)
[2022-10-21] MEDS: Ibuprofen 600 MG Tablet PO (22:45)
[2022-10-22 04:23] VITALS: BP 115/66; PULSE 81; RESP 15
[2022-10-22] MEDS: Ibuprofen 600 MG Tablet PO (04:32)
--- NOTE | 2022-10-22 08:48 | PN.OBGYN_ITS ---
Subjective Subjective No overnight complaints Objective Data Objective Data Vital Signs: Vital Signs Temp Pulse Resp BP Pulse Ox O2 Del Method 98.3 F 81 15 115/66 98 Room Air 10/21/22 19:19 10/22/22 04:23 10/22/22 04:23 10/22/22 04:23 10/21/22 23:08 10/22/22 04:23 Oxygen Delivery Method Room Air Weight: 160 lb 3.2 oz Body Mass Index (BMI) 30.2 Intake & Output: Intake and Output for Last 24 Hours 10/20/22 10/21/22 10/22/22 23:59 23:59 23:59 Intake Total 2523.33 / 2523.33 Output Total 1000 / 1000 450 / 450 Balance 1523.33 / 1523.33 -450 / -450 Lab / Micro Data 10/21/22 08:20 Labs: Laboratory Results - last 24 hr 10/21/22 08:20: WBC 10.3, RBC 3.82 L, Hgb 11.3 L, Hct 33.4 L, MCV 87.4, MCH 29.6, MCHC 33.8, RDW Std Deviation 40.1, RDW Coeff of Angela 12.7, Plt Count 218, MPV 11.7, Immature Gran % (Auto) 0.400, Neut % (Auto) 68.9, Lymph % (Auto) 21.5, [place] % (Auto) 7.7, Eos % (Auto) 1.1, Baso % (Auto) 0.4, Absolute Neuts (auto) 7.1, Absolute Lymphs (auto) 2.22, Nucleated RBC % 0, Syphilis Total Ab Non-reactive, Blood Type B POSITIVE, Antibody Screen NEGATIVE Physical Exam Const alert, oriented x3, no apparent distress, average body habitus, healthy appearing and well nourished HEENT normocephalic and moist oral mucous membranes Eyes PERRL Neck full ROM Resp normal respiratory effort, no retractions and no use of accessory muscles GI GI Narrative: Soft, nontender, uterus firm and below umbilicus Extremity normal to inspection and full ROM Neuro moves all extremities and no focal motor deficits Psych mental status grossly normal, affect normal, speech normal and activity/motor behavior normal Assessment & Plan (1) Vaginal delivery: PLAN: day 1. Breast-feeding. Pain well controlled. Okay to discharge home today if okay with optical effects layout person
--- NOTE | 2022-10-22 08:48 | DCINST_ITS ---
Discharge Instructions Diet Discharge Diet: No restrictions Activity Discharge Activity: Return to Normal Activity, May Drive and May Shower May resume sexual activity in: 6-8 weeks Weight Bearing Status: Weight bearing as tolerated Dressing / Incision Call your doctor if your incision/area has: Continuous Slow Oozing and Foul Smelling Discharge Call your doctor if you observe: Fever of 101 or Higher, Shortness of breath and Chest pain Follow Up Care Please Follow Up With: Tommie Monsalve MD When: 4 to 6 weeks Test Results: Test results from this visit will be discussed in further detail at your follow- up appointment, if applicable. Discharge Plan Admission Admit Date/Time: 10/21/22 06:55 Attending Provider: Tommie Monsalve Primary Care Provider: Jessica Carter Discharge Orders/Prescriptions Prescriptions: No Action famotidine 20 MG tablet 20 mg PO DAILY Hold Instructions: Ordered PNV cmb#95-ferrous fumarate-FA 1 EACH tablet 1 tab PO DAILY omeprazole 20 mg capsule,delayed release(DR/EC) 20 mg PO DAILY progesterone micronized 200 mg capsule 200 mg vaginal DAILY folic acid 1 mg tablet 4 mg PO DAILY Patient Comments: take 4 tablets by mouth once daily Referrals / Follow Up: Jessica Carter MD [Primary Care Provider] - Disposition Discharge Orders: Discharge Patient (Routine); Ordered 10/22/22 Ordered By: Dr. Tommie Monsalve
[2022-10-22] MEDS: Famotidine 20 MG Tablet PO (09:15)
[2022-10-22] MEDS: Pantoprazole Sodium 20 MG Tablet PO (09:15)
[2022-10-22 09:29] VITALS: BP 107/66; PULSE 69; RESP 16; TEMP 36.2; O2SAT 97
--- NOTE | 2022-10-22 11:55 | CASEMGMT ---
Social Work Assessment Labor and Delivery Unit Patient Address:[place] [address] Phone number: [phone] Date of Referral: 10/22/22 Time of Referral:? [phone] Referred By: Dr. Tommie Monsalve Date of Intervention: ??10/22/22 Time of Intervention:? 1100 Reason for Referral:? mental health, anxiety Sw completed chart review and acknowledges social work consult submitted for maternal anxiety. Sw presented to hospital room and met with mother of baby (USDEEP Gomez). Sw introduced self and explained sw reason for sw involvement. Sw completed psychosocial assessment and provided support, literature and education. History obtained from: medical records and MOB?? Household composition: Currently residing in the home is MOB, father of baby (BHARATHI- Syed), MOB's older child José Miguel (9 years old from former relationship) and Sasha (2 year old child of both MOB and BHARATHI), and baby girl, Brandon Molina. Patient's parent/guardian status:?MOB states that she and BHARATHI met on Facebook and have been together for 5 years. Parents are unmarried and co-habitate with each other. Dad has two other children from another relationship. MOB denies domestic violence or intimate partner violence. Medical History: CHARLEE is 3 and para 3. CHARLEE delivered baby via vaginal delivery on 10/21/22. Baby was born weighing 6lb and 2oz. Baby's apgars were 8 and 9. CHARLEE is working on breast feeding and states that it is going ok. MOB states that her two other deliveries were early, José Miguel was born at 23 weeks gestation and transferred to [facility] NICU, where he was ultimately able to be discharged around 4 months of age. MOB states that Sasha was also born early at 35 weeks gestation. He was admitted to [facility] for a month before he was able to be discharged. Educational Status:?MOB reporst that she graduated from high school and obtained her certificate in dental assisting. BHARATHI completed the 11th grade. 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 CHARLEE is a stay at home mom. BHARATHI was only able to take off two days of work for the of baby. Infant Supplies:?MOB reports that they have obtained all necessary baby items including car seat, safe sleep space, clothes, diapers and wipes. CHARLEE states that she is also working on feeding, but has a pump to use at home when required. Childcare/Caregiver(s):? CHARLEE reports that she will be the primary caregiver to baby, but has friends and family members who can help watch baby when necessary. CHARLEE states that her other two children are being babysat by her sister while she is at the hospital with baby. Transportation:?? No transportation issues or concerns at this time. MOB states that both parents have a reliable vehicle. Programs/Agencies Involved: ???CHARLEE is connected to [employer] through [employer]. CHARLEE also has WIC and is involved with [employer] with her other two boys for prematurity and feeding diffculties. Sw asked CHARLEE if she wanted to get connected to [place] for , MOB declined at this time. Children Services/Legal Issues:??? CHARLEE denies Children Services history. NO concerns that warrant referral at this time. Behavioral Health Issues: ??Mental Health History: CHARLEE reports that BHARATHI does not have any mental health diagnoses. MOB states that she has been diagnosed with anxiety. 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 MOB states that at that time her son needed to be admitted to NICU and that was very challenging for her. Sw educated CHARLEE on signs and symptoms of baby blues and post depression. CHARLEE completed [place] Screen, her score was a 6. Sw provided support and education. MOB expressed understanding. ? Substance Use History:?CHARLEE denies substance history prior to and during ? Family History:???CHARLEE denies mental health history and substance use history of her family. ?? Drug Screens: ?MOB urine screen at delivery was negative for all substances. Family/Social Stressors:? MOB states that the only concern she has at this time is trying to breast feed baby at home. MOB states that she is worried about her two year old being too curious and jealous. MOB states that if it becomes to difficult to breast feed baby she will pump and feed baby that way. Support Systems: CHARLEE states that she has a lot of supports in place with her mom, sisters and her best friend. Depression/Shaken Baby/Safe Sleeping:?Sw provided education and literature on baby blues and post depression. MOB expressed understanding. Sw educated MOB on shaken baby prevention and ABCs of safe sleep. MOB expressed understanding. ASSESSMENT:? MOB agreeable to meet and talk with sw. MOB observed sitting on bed and feeding baby, tending to her affectionately. MOB receptive to education and literature provided. MOB expressed understanding of signs and symptoms of baby blues and post depression to look for. MOB was receptive to sw involvement and support. PLAN:? MOB and baby to be discharged to home when medically ready. ?No other services requested or indicated. Huyen Byrd, OTHER SPORTS OFFICIAL, SMT TECHNICIAN
[2022-10-22 12:19] VITALS: BP 129/67; BP 144/76; PULSE 79; RESP 16; TEMP 36.4; O2SAT 96
[2022-10-22] MEDS: Acetaminophen 500 MG Tablet 1000 MG PO (13:08)
[2022-10-22 16:19] VITALS: BP 121/73; PULSE 90; RESP 16; TEMP 36.4; O2SAT 98
[2022-10-22] MEDS: SimETHICONE 80 MG Chewable Tablet PO (16:31)
== END 2022-10-22 18:30 | disposition home or self-care (01) | DRG 560 ==
PROVIDERS: Admitting Provider Obstetrics & Gynecology; PCP Family Medicine; Referring Provider Student in an Organized Health Care Education/Training Program; Visit Provider Obstetrics & Gynecology
DX: O70.1 Second degree perineal laceration during delivery (principal); Z37.0 Single live birth; Z3A.39 39 weeks gestation of pregnancy; Z87.51 Personal history of pre-term labor
CPT/HCPCS: 59025; 59050; 76815; 85025; 86780; 86850; 86900; 86901; 99221; J7120; G0378

== ENCOUNTER → 2024-01-22 | Outpatient (CLI) | payer MEDICAID, SELFPAY ==
--- NOTE | 2024-01-22 14:37 | RAD_ITS ---
EXAM: XR CHEST, 2 VIEWS CLINICAL INDICATION: COUGH TECHNIQUE: Frontal and lateral views of the chest. COMPARISON: No relevant prior studies available. FINDINGS: LUNGS AND PLEURAL SPACES: No significant abnormality. No consolidation or edema. No pneumothorax. No effusion. HEART: No significant abnormality. Cardiac silhouette not enlarged. MEDIASTINUM: Central airways and mediastinal contour are unremarkable. BONES/JOINTS: No significant abnormality. No acute fracture. SOFT TISSUES: No significant abnormality. RAD/Chest PA and Lateral IMPRESSION: No radiographic evidence of acute cardiopulmonary disease. Electronically Signed: Paul Lopez DO at 22:33 EDT ,
== END | disposition home or self-care (01) ==
PROVIDERS: PCP Family Medicine; Referring Provider Family Medicine; Visit Provider Family Medicine
DX: J18.9 Pneumonia, unspecified organism (principal)
CPT/HCPCS: 71046

== ENCOUNTER → 2024-01-30 | Outpatient (CLI) | payer MEDICAID, SELFPAY | END | disposition home or self-care (01) | LOC: PSN 10:29 | PROVIDERS: PCP Family Medicine; Referring Provider Family Medicine; Visit Provider Family Medicine | DX: R06.00 Dyspnea, unspecified (principal) | CPT/HCPCS: 94060; 94726; 94729 ==

== ENCOUNTER → 2024-02-17 | Outpatient (CLI) | payer MEDICAID, SELFPAY ==
[2024-02-17 15:03] LABS: Absolute Lymphocyte Count 2.38 X10^3/uL (0.83-4.51); Absolute Neutrophil Count 5.4 X10^3/uL (2.0-7.7); Basophil# 0.06 X10^3/uL; Basophil% 0.7 % (0-1); Eosinophil# 0.16 X10^3/uL; Eosinophils% 1.9 % (0-5); Hematocrit 41.9 % (37-47); Hemoglobin 13.8 g/dL (12.0-15.0); Lymphocyte # 2.38 X10^3/ul (0.83-4.51); Lymphocyte % 27.6 % (19-41); Mean Corp Hgb Conc 32.9 g/dL (32-36); Mean Corpuscular Hgb 30.4 pg (27.0-32.0); Mean Corpuscular Volume 92.3 fL (81-99); Mean Platelet Vol. 10.1 fl (6.2-12.0); Monocyte# 0.65 X10^3/uL; Monocyte% 7.5 % (0-10); NRBC Flagged by Analyzer 0 % (0-5); Neutrophil # 5.35 X10^3/uL (2.7-7.7); Neutrophil % 62.1 % (47-70); Platelet Count 284 K/mm3 (150-450); RBC Distribution Width CV 12.8 % (11.6-14.6); RBC Distribution Width SD 43.3 fl (35.1-43.9); Red Blood Count 4.54 M/mm3 (4.2-5.4); White Blood Count 8.6 K/mm3 (4.4-11.0)
[2024-02-17 15:19] LABS: BNP,B-Type NATRIURETIC PEPTIDE 23.9 pg/mL (0-100)
[2024-02-17 15:27] LABS: ALB/GLOB Ratio 1.1 RATIO (0.9-2.4); AST(SGOT) 11 U/L (15-37); Alanine Aminotransfer ALT/SGPT 23 U/L (13-56); Albumin, Serum 3.8 g/dL (3.2-5.0); Alkaline Phosphatase 63 U/L (45-117); Anion Gap 8 (5-15); BUN 15 mg/dL (7-18); BUN/Creat Ratio 27.5 RATIO (10-20); Calcium,Total 9.1 mg/dL (8.5-10.1); Chloride 103 mmol/L (98-107); Cholesterol 184 mg/dL (200); Creatinine, Serum 0.55 mg/dL (0.55-1.02); EST Glomerular Filtration Rate 132 mL/min (>60); Est Glom Filt Rate - Afr Amer 160 mL/min (>60); Globulin 3.5 g/dL (2.2-4.2); Glucose 81 mg/dL (74-106); High Density Lipoprotein 66 mg/dL; Potassium 4.2 mmol/L (3.5-5.1); Protein, Total 7.3 g/dL (6.4-8.2); Sodium Level 136 mmol/L (136-145); Triglycerides 100 mg/dL; Troponin-I HS 3 pg/mL (3.0-54.0); Very Low Density Lipoprotein 20 mg/dL (5-40)
== END | disposition home or self-care (01) ==
LOC: MTLAB 12:32
PROVIDERS: PCP Family Medicine; Referring Provider Nurse Practitioner Family; Visit Provider Nurse Practitioner Family
DX: Z00.00 Encounter for general adult medical examination without abnormal findings (principal); R07.9 Chest pain, unspecified
CPT/HCPCS: 36415; 80053; 80061; 83880; 84484; 85025

== ENCOUNTER → 2024-03-29 | Outpatient (CLI) | payer MEDICAID, SELFPAY ==
--- NOTE | 2024-03-29 16:05 | STRESSREP ---
Stress Test Report Exercise stress test. 39-year-old lady with a history of chest pain Stress protocol: Resting EKG demonstrates normal sinus rhythm with a rate of 78 bpm resting blood pressure is 118/70 mmHg. The patient exercised according to the regular Anthony protocol for a total duration of 10 minutes and 10 seconds attaining a maximum heart rate of 169 bpm which was 93% of maximum predicted heart rate; the maximum workload was 13.4 metabolic equivalents. At rest there were no ST or T wave changes noted to suggest ischemia and at peak exercise upsloping ST changes only were noted which did not meet the criteria for ischemia. No clinical angina was noted the test was terminated due to the target heart rate being achieved/fatigue. Mild chest discomfort of unknown significance. The peak blood pressure was 148/64 mmHg. Rate-pressure product was 22,600. Conclusion: Exercise stress test with no EKG criteria for ischemia at a high workload
== END | disposition home or self-care (01) ==
PROVIDERS: PCP Family Medicine; Referring Provider Nurse Practitioner Family; Visit Provider Nurse Practitioner Family
DX: R07.9 Chest pain, unspecified (principal); R06.02 Shortness of breath; Z82.49 Family history of ischemic heart disease and other diseases of the circulatory system
CPT/HCPCS: 93017

== ENCOUNTER → 2024-04-19 | Outpatient (CLI) | payer MEDICAID, SELFPAY | END | disposition home or self-care (01) | LOC: PSN 08:44 | PROVIDERS: PCP Family Medicine; Referring Provider Nurse Practitioner Family; Visit Provider Nurse Practitioner Family | DX: R00.2 Palpitations (principal) ==

== ENCOUNTER → 2024-08-20 | Outpatient (CLI) | payer MEDICAID, SELFPAY ==
--- NOTE | 2024-08-20 12:57 | ECHOD_ITS ---
Reason For Study Reason For Study: Arrhythmia Procedure This was a 2D Doppler, Color Flow transthoracic echocardiogram. Exam performed in department. Left Ventricle Normal LV size. The left ventricular ejection fraction is 60 %. Normal diastology for age. No regional wall motion abnormalities noted. Right Ventricle Normal RV size. Normal systolic function. Atria Normal left atrium. Normal right atrium. Mitral Valve Normal mitral valve. Tricuspid Valve Normal tricuspid valve. Aortic Valve Normal aortic valve. Trisinus/trileaflet aortic valve. Pulmonic Valve Normal pulmonic valve. Great Vessels Normal aortic root. The pulmonary artery is normal size. Inferior vena cava collapse with sniff. Pericardium/Pleural No pericardial effusion. MMode/2D Measurements & Calculations LVIDd: 4.5 cm IVSd: 0.75 cm Ao root diam: 2.2 cm LVIDs: 2.8 cm LVPWd: 0.86 cm RVDd: 3.0 cm FS: 38.7 % LAV(MOD-bp): 39.0 ml LVAd ap4: 27.2 cm2 SV(MOD-sp4): 46.3 ml LAV(MOD-bp) Indexed: 23.3 ml/m2 LVLd ap4: 7.5 cm SI(MOD-sp4): 27.6 ml/m2 LAV(MOD-sp2): 47.1 ml EDV(MOD-sp4): 79.0 ml LAV(MOD-sp4): 31.5 ml EDV(sp4-el): 83.3 ml LVAs ap4: 15.7 cm2 LVLs ap4: 6.1 cm ESV(MOD-sp4): 32.7 ml ESV(sp4-el): 34.2 ml EF(MOD-sp4): 58.6 % EF(sp4-el): 58.9 % SV(sp4-el): 49.1 ml LA A4 area: 13.6 cm2 LA dimension(2D): 3.2 cm RA A4 area: 10.4 cm2 TAPSE: 2.2 cm Time Measurements MV dec time: 0.15 sec Doppler Measurements & Calculations MV E max enrique: 106.8 cm/sec Lat Peak E' Enrique: 17.4 cm/sec Med Peak E' Enrique: 13.9 cm/sec MV A max enrique: 60.3 cm/sec E/E' lat: 6.1 E/E' med: 7.7 MV E/A: 1.8 MV V2 max: 129.4 cm/sec MV P1/2t max enrique: 131.1 cm/sec Ao V2 max: 145.8 cm/sec MV max P.7 mmHg MV P1/2t: 62.1 msec Ao max P.5 mmHg MV V2 mean: 62.3 cm/sec Ao V2 mean: 104.2 cm/sec MV mean P.0 mmHg MV dec slope: 618.8 cm/sec2 Ao mean P.9 mmHg MV V2 VTI: 32.0 cm MVA(P1/2t): 3.5 cm2 Ao V2 VTI: 33.2 cm AV (velocity ratio): 0.80 LV V1 max: 122.4 cm/sec PA V2 max: 95.2 cm/sec TR max enrique: 236.9 cm/sec LV V1 max P.0 mmHg TR max P.4 mmHg LV V1 mean P.2 mmHg LV V1 mean: 83.8 cm/sec LV V1 VTI: 26.7 cm ECHO/Echo Complete Interpretation Summary Normal LV size. The left ventricular ejection fraction is 60 %. Normal diastology for age. Structurally normal valves. Ordering Physician: Oumar Carter Referring Physician: Oumar Carter Performed By: Dimas Leung RCS
== END | disposition home or self-care (01) ==
LOC: CVS 12:53
PROVIDERS: PCP Family Medicine; Referring Provider Internal Medicine Cardiovascular Disease; Visit Provider Internal Medicine Cardiovascular Disease
DX: R00.2 Palpitations (principal)
CPT/HCPCS: 93306

== ENCOUNTER → 2024-10-25 | Outpatient (CLI) | payer MEDICAID, SELFPAY ==
--- NOTE | 2024-10-25 12:33 | STE_ITS ---
Reason For Study Reason For Study: ABN ECHO, SOB Stress Results Protocol: Anthony Protocol Maximum Predicted HR: 181 bpm Target HR: 154 bpm % Maximum Predicted HR: 91 % DurationHeart Rate Stage (mm:ss) (bpm) BP Comment BASELINE 69 118/70 STAGE 1 3:00 101 132/80 STAGE 2 3:00 110 122/84 STAGE 3 3:00 142 142/80 STAGE 4 1:00 164 / SOB,DIZZY,LIGHTHEADED, RECOVERY 84 110/74 Stress Duration: 10:00 mm:ss Maximum Stress HR: 164 bpm Baseline Echocardiogram Findings Stress Echo Wall motion Data Resting WM Intermediate WM Stress WM ECHO/Stress Test Echo w/o Contrast Interpretation Summary Exercise stress echo. 39-year-old lady with a history of abnormal echo. Resting EKG demonstrates norm al sinus rhythm with a rate of 67 bpm no intervals are noted resting blood pressure is 118/70 mmHg. The patient exercise d according to regular Anthony protocol for total duration of 10 minutes. The maximum heart rate attained was 166 bpm which was 91% of maximum. At heart rate the maximum workload was 13.4 metabolic equivalents. At rest there were no ST or T wave changes noted suggest ischemia and at peak exercise upsloping ST changes were noted we did not meet the criteria f or ischemia. The patient at 8 minutes into the exercise did develop what appeared to be rate dependent left bundle br anch block pattern aberration. No chest pain was noted no shortness of breath was noted. During recovery at approximate ly 3 minutes the patient reverted back to sinus rhythm with a narrow QRS complex. The maximum blood pressure was 142/80 m mHg with a rate-pressure product of 20,100. Stress echocardiogram. The resting echocardiogram demonstrated preserved left ventricular systolic fun ction. Estimated ejection fraction was 60%. With exercise there was mild hypokinesis of the mid anteroseptal wall. The ejection fraction however improved to about 70%. The mild anteroseptal wall motion abnormality was likely due to the left bundle branch block aberration. Conclusion: Exercise stress test with no EKG changes for ischemia at a high workload. Rate dependent bundle branch block noted. Normal resting echocardiogram with stress echocardiogram demonstrating appropri ate augmentation with anterior septal wall motion abnormality likely due to left bundle branch block aberration. Ordering Physician: Louann Mari Referring Physician: Louann Mari Performed By: Kalyn Tsai RCS
== END | disposition home or self-care (01) ==
LOC: CVS 12:30
PROVIDERS: PCP Family Medicine; Referring Provider Physician Assistant Medical; Visit Provider Physician Assistant Medical
DX: R06.02 Shortness of breath (principal); R00.2 Palpitations
CPT/HCPCS: 93017; 93350

== ENCOUNTER → 2024-11-04 | Outpatient (CLI) | payer MEDICAID, SELFPAY ==
--- NOTE | 2024-11-04 11:40 | RAD_ITS ---
PROCEDURE: CHEST PA AND LATERAL 11/04/2024 REASON FOR EXAM: CP TECHNIQUE: CHEST PA AND LATERAL COMPARISON: Chest x-ray of 01/22/2024. RAD/Chest PA and Lateral IMPRESSION: No pleural effusion or pneumothorax is noted. Lungs appear clear and unchanged. The cardiomediastinal silhouette is within the normal range, and unchanged. Mild thoracic spine degenerative changes are noted. No acute osseous process is noted. Reading Location: [place] [id number]
[2024-11-04 12:14] LABS: Hematocrit 42.8 % (37-47); Hemoglobin 14.5 g/dL (12.0-15.0); Immature Granulocytes Count 0.010 X10^3/uL (0.0-0.0); Mean Corp Hgb Conc 33.9 g/dL (32-36); Mean Corpuscular Volume 93.9 fL (81-99); Mean Platelet Vol. 10.7 fl (6.2-12.0); NRBC Flagged by Analyzer 0 % (0-5); Platelet Count 291 K/mm3 (150-450); RBC Distribution Width CV 12.3 % (11.6-14.6); RBC Distribution Width SD 42.8 fl (35.1-43.9); Red Blood Count 4.56 M/mm3 (4.2-5.4); White Blood Count 7.6 K/mm3 (4.4-11.0)
[2024-11-04 12:22] LABS: Prothrombin Time (Protime)PT. 12.8 SECONDS (11.7-14.9)
[2024-11-04 12:23] LABS: Partial Thromboplast Time 25.1 Seconds (24.1-36.2)
[2024-11-04 13:00] LABS: Anion Gap 10 (5-15); BUN 13 mg/dL (4-19); BUN/Creat Ratio 17.8 RATIO (10-20); Calcium,Total 9.0 mg/dL (7.6-11.0); Carbon Dioxide 23.3 mmol/L (21.0-32.0); Chloride 102 mmol/L (98-108); Glucose 116 mg/dL (70-99); Potassium 4.2 mmol/L (3.3-5.1)
== END | disposition home or self-care (01) ==
LOC: LAB 11:24
PROVIDERS: PCP Family Medicine; Referring Provider Physician Assistant Medical; Visit Provider Physician Assistant Medical
DX: R07.9 Chest pain, unspecified (principal); R06.02 Shortness of breath; I45.4 Nonspecific intraventricular block; R94.31 Abnormal electrocardiogram [ECG] [EKG]
CPT/HCPCS: 36415; 71046; 80048; 85025; 85610; 85730

== ENCOUNTER 2024-11-08 10:04 | Day surgery (SDC) | payer MEDICAID, SELFPAY ==
[2024-11-05 08:36] VITALS: BMI 29.2
--- NOTE | 2024-11-05 15:17 | PCM.HP.BLA ---
History and Physical Date of Admission: 11/08/24 Pleasant 39-year-old lady with no previous cardiac history but with a history of anxiety who says that she has been having palpitations over the last few months. She denies any chest pain but she feels this irregular heartbeat in his throat. As part of her workup she underwent an exercise stress test where she exercised to 13.4 metabolic equivalents with no EKG criteria for ischemia and occasional premature ventricular complex only noted. She does get short of breath with palpitations she says that she had asthma as a child and on occasion she has to put her head down between her legs. She has had no presyncope or syncope. She also had a 48-hour Holter monitor which demonstrated an average heart rate of 79 bpm with a minimum of 51 beats and a max of 130 bpm. Isolated ventricular and supraventricular ectopic beats were noted. She underwent an echocardiogram which demonstrated an ejection fraction of 60% with structurally normal valves. 14-day event monitor demonstrated sinus rhythm with interventricular conduction delay at exercise. Patient was symptomatic with this. Because of her rhythm change and the fact that she was symptomatic she underwent a stress echocardiogram. This demonstrated rate dependent left bundle branch block. Patient was symptomatic with palpitations with this. Because of her symptoms and her rate dependent left bundle branch block she is undergoing a diagnostic heart catheterization to further assess. [facility] Medical History SOB (shortness of breath) Chest pain GERD (gastroesophageal reflux disease) Palpitations History of premature rupture of membranes (PPROM) Depression Anxiety Surgical History History of fundoplication History of surgery Family History Father Myocardial infarction CVA (cerebral vascular accident) Diabetes Grandmother Breast cancer Cancer Son Asthma Social History Smoking Status: Never smoker alcohol intake: current alcohol intake frequency: holidays/special occasions only substance use type: does not use ROS Const Const: Positive for fatigue; Negative for weakness, headache(s), daytime sleepiness or difficulty sleeping ENT ENT: Negative for headache(s), dizziness or Nosebleed/epistaxis Cardio Chest Pain: No Palpitations: Yes feels like its: fast and pounding Resp Respiratory: Positive for SOB with activity (with palps); Negative for SOB at rest, SOB orthopnea\SOB lying down or Cough GI GI: Negative nausea, vomiting or heartburn Neuro Neuro: Negative for dizziness, lightheadedness, near syncope, headache(s) or weakness Endo Endo: Positive for fatigue Cardiology Exam Const Appearance: cooperative, healthy appearing, no acute distress, well developed and well groomed Nutritional Appearance: average body habitus and well nourished Orientation: alert, awake and oriented x3 Head Head: normal to inspection, normocephalic and atraumatic Ears: hearing grossly normal bilaterally and external ears normal Nose: external nose normal, nares normal, nasal mucous membranes and turbinates normal, septum normal and no nasal discharge Face and Sinus: face symmetric Mouth: oral mucosae normal, tongue normal, oropharynx normal and moist mucous membranes Teeth and gingiva: dentition normal Throat: posterior oropharynx normal, tonsils normal and uvula midline Eyes General: appearance normal, both eyes and all related structures Eyelids: eyelids normal Conjunctivae: conjunctivae normal Pupils: PERRL, normal by confrontation and accommodation normal EOM: EOM intact bilaterally Neck Neck: normal visual inspection, trachea midline and no JVD JVD: +5 Carotids: normal carotid upstroke and bounding pulses Chest Chest inspection: normal inspection of the chest, symmetric chest movement and normal respiratory effort Auscultation: Bilateral: Clear to Auscultation Cardio Palpation: normal PMI Rate: regular rate Rhythm: regular rhythm Heart sounds: S1 normal, S2 normal and normal, physiologic split S2; Negative rub, gallop or murmur GI GI: normal to inspection, soft, no hepatosplenomegaly and bowel sounds present Neuro General: patient alert, patient awake, patient oriented x3, gait normal, moves all extremities and no focal sensory deficit Skin Skin: no rashes or lesions noted Extremities Pulses: Normal: Right Femoral Pulse, Left Femoral Pulse, Right Dorsalis Pedis Pulse, Left Dorsalis Pedis Pulse, Right Posterior Tibial Pulse, Left Posterior Tibial Pulse, Right Radial Pulse and Left Radial Pulse Lower Extremity Edema: None: Bilateral Musculoskel Musculoskeletal: No joint tenderness Psych Psychological: normal affect Assessment & Plan Assessment/Plan (1) Abnormal EKG: (2) IVCD (intraventricular conduction defect): (3) SOB (shortness of breath): (4) Chest pain: PLAN: Plan Patient is scheduled to undergo a diagnostic heart catheterization. Follow-up will be based upon findings.
[2024-11-08 10:41] LABS: Internal QC Validated? YES +Cl - CLEAR BKGD; Pregnancy, Urine Negative Negative; Record Kit Lot#,Urine Preg 0000962302
--- NOTE | 2024-11-15 09:47 | CL.D_ITS ---
Patient Name: WINTER NOLASCO Study Date: 11/08/2024 Performing: Oumar Carter MD Ht: 61 inches 154.94 cm : 1985 Wt: 155.01 lbs 70.31 kg Age: 39 Gender: female BSA: 1.7 PROCEDURE(S) PERFORMED [id number]-([id number])[facility] CLINICAL PROFILE AND INDICATIONS Indications: Suspected CAD Heart Failure: None Stress/Imaging Date: 10/29/24Stress Echocardiogram: Indeterminant CAD Presentations: Other: palpitations CONCLUSIONS Normal coronary arteries RECOMMENDATIONS Medical therapy DESCRIPTION OF PROCEDURE The patient arrived to the procedure lab. The risks and benefits of the procedure as well as a full description of our services here and current unavailability of surgical backup were fully explained to the patient and/or their significant other prior to the catheterization. The Timeout was completed, verifying the correct patient and procedure. The patient's procedural site was prepped and draped in the usual fashion. Local anesthetic was given subcutaneously to right radial region with Lidocaine 2%. Using a modified Seldinger technique, arterial access was obtained via the right radial artery, a 6Fr sheath was inserted. Left Coronary Artery selective angiography was performed in multiple views using a 5 Fr. 4.0 [place] catheter. Right Coronary Artery selective angiography was then performed in multiple views using a 5 Fr. 4.0 [place] catheter. CORONARY ANGIOGRAPHY DOMINANCE: Right Dominant LEFT HEART ASSESSMENT Left Ventricular Ejection Fraction: by Echo 60 % Normal LV wall motion Normal Left Ventricular systolic function LEFT MAIN: Angiographically normal LEFT ANTERIOR DESCENDING ARTERY: Angiographically normal CIRCUMFLEX ARTERY: Angiographically normal RIGHT CORONARY ARTERY: Angiographically normal COMPLICATIONS No Complications PROCEDURE MEDICATIONS Fentanyl 50 mcg IV Versed 1 mg IV Versed 1 mg IV Oxygen: 2 L/min via nasal cannula Aspirin (325mg) 1 Tabs PO @ 11/08/2024 10:28:07 Heparin given IA 11/08/2024 12:40:32 Verapamil 2.5mg, Ntg 100mcgs, 3000 units of Heparin given IA 11/08/2024 12:40:32 SUMMARY OF HEMODYNAMIC DATA Time AIR REST ECG 10:28:47 AO 105/79 (93) SA 12:45:07 Signed By Oumar Carter MD On 11/08/2024 12:59:15 Oumar Carter MD
== END 2024-11-08 15:35 | disposition home or self-care (01) ==
PROVIDERS: PCP Family Medicine; Referring Provider Internal Medicine Cardiovascular Disease; Visit Provider Internal Medicine Cardiovascular Disease
DX: R00.2 Palpitations (principal); R06.02 Shortness of breath; R94.31 Abnormal electrocardiogram [ECG] [EKG]; K21.9 Gastro-esophageal reflux disease without esophagitis; F41.9 Anxiety disorder, unspecified; F32.A Depression, unspecified; Z79.899 Other long term (current) drug therapy
CPT/HCPCS: 81025; 93454; 99152; 99153; Q9967; A4216; C1769; C1894

== ENCOUNTER → 2025-02-28 | Outpatient (CLI) | payer MEDICAID, SELFPAY ==
[2025-02-28 10:45] LABS: Hematocrit 42.9 % (37-47); Hemoglobin 14.7 g/dL (12.0-15.0); Immature Granulocytes Count 0.020 X10^3/uL (0.0-0.0); Mean Corp Hgb Conc 34.3 g/dL (32-36); Mean Corpuscular Volume 91.1 fL (81-99); Mean Platelet Vol. 10.4 fl (6.2-12.0); NRBC Flagged by Analyzer 0 % (0-5); Platelet Count 301 K/mm3 (150-450); RBC Distribution Width CV 12.1 % (11.6-14.6); RBC Distribution Width SD 40.2 fl (35.1-43.9); Red Blood Count 4.71 M/mm3 (4.2-5.4); White Blood Count 8.5 K/mm3 (4.4-11.0)
[2025-02-28 11:23] LABS: Iron 86 ug/dL (50-170)
[2025-02-28 11:39] LABS: AST(SGOT) 20 U/L (<=31); Alanine Aminotransfer ALT/SGPT 22 U/L (<=34); Albumin, Serum 4.3 g/dL (3.5-5.0); Alkaline Phosphatase 60 U/L (35-104); Anion Gap 13 (5-15); BUN 13 mg/dL (4-19); BUN/Creat Ratio 19.4 RATIO (10-20); CORTISOL AM 11.70 ug/dL (6.02-18.40); Calcium,Total 9.1 mg/dL (7.6-11.0); Carbon Dioxide 21.5 mmol/L (21.0-32.0); Chloride 103 mmol/L (98-108); Cholesterol 202 mg/dL (<=200); Ferritin 62 ng/mL (22-378); Globulin 3.0 g/dL (2.2-4.2); Glucose 104 mg/dL (70-99); Low Density Lipoprotein Calc. 118 mg/dL; Potassium 4.0 mmol/L (3.3-5.1); Triglycerides 171 mg/dL; Very Low Density Lipoprotein 34 mg/dL (5-40); Vitamin B12 491 pg/mL (180-914); Vitamin D,25 Hydroxy 18.8 ng/mL (30-100); cholesterol:hdl ratio screen 3.76
== END | disposition home or self-care (01) ==
LOC: MTLAB 08:41
PROVIDERS: PCP Family Medicine; Referring Provider Nurse Practitioner Family; Visit Provider Nurse Practitioner Family
DX: Z00.01 Encounter for general adult medical examination with abnormal findings (principal); R63.5 Abnormal weight gain; R53.83 Other fatigue
CPT/HCPCS: 36415; 80053; 80061; 82306; 82533; 82607; 82728; 83540; 84439; 84443; 85025